=== PATIENT | female | born 1975 | race Caucasian/White ===

== ENCOUNTER 2023-09-23 12:08 | Outpatient (REF) | payer MEDICAID, SELFPAY ==
[2023-09-23 13:48] LABS: Hematocrit 45.4 % (37.0-47.0); Hemoglobin 15.2 g/dl (12.0-16.0); Mean Corpuscular HGB Conc 33.5 g/dl (31.0-35.0); Mean Corpuscular Hemoglobin 31.5 pg (27.0-33.0); Mean Corpuscular Volume 94.2 fL (80.0-98.0); Mean Platelet Volume 9.8 fL (9.4-12.3); Platelet Count 311 X10*3/uL (160-400); Red Blood Count 4.82 X10*6/uL (4.20-5.50); Red Cell Distribution Width 14.4 % (11.0-16.0); White Blood Count 8.1 X10*3/uL (4.8-10.8)
[2023-09-23 14:07] LABS: Estimated Average Glucose 108 mg/dL; Hemoglobin A1c % 5.4 % (<6.0)
[2023-09-23 14:13] LABS: Alanine Aminotransferase 46 U/L (0-31); Albumin Level 4.5 g/dL (3.5-5.0); Alkaline Phosphatase 98 U/L (39-117); Anion Gap 14 (12-20); Aspartate Amino Transferase 31 U/L (5-31); Bilirubin Direct 0.2 mg/dL (0.0-0.5); Bilirubin Total 0.9 mg/dL (0.0-1.0); Blood Urea Nitrogen 12 mg/dL (9-16); Calcium 9.7 mg/dL (8.4-10.2); Carbon Dioxide 28 mmol/L (22-29); Chloride 104 mmol/L (96-108); Cholesterol 249 mg/dL (<200); Creatinine Urine 439.85 mg/dL; Estimated Glomerular Filt Rate > 60; Glucose Random 111 mg/dL (60-115); HDL Cholesterol 72 mg/dL (>40); LDL Cholesterol Calculated 139 mg/dL (<100); Microalbum/Creatinine Ratio Ur 11.3 ug/mg cr (<30); Potassium 3.8 mmol/L (3.3-5.1); Sodium 142 mmol/L (135-145); Total Protein 7.4 g/dL (6.5-8.0); Triglycerides 191 mg/dL (<150)
[2023-09-23 14:31] LABS: Thyroid Stimulating Hormone 4.69 uIU/mL (0.32-4.0); Vitamin D 25-OH Total 53.8 ng/mL (>30)
[2023-09-23 15:09] LABS: CT PCR NOT DETECTED (Not Detect.); NG PCR NOT DETECTED (Not Detect.)
[2023-09-24 07:25] LABS: HBS Num1 79.91 mIU/mL (0-7.99); HBc Num1 0.11 S/CO (0.00-0.79); HBsAGNum1 0.23 S/CO (0.00-0.99); HIV AB/AG Nonreactive (Nonreactive); HIV Num 1 0.12 S/CO (0.00-0.99); Hepatitis B Core Antibody Nonreactive (Nonreactive); Hepatitis B Surface Antigen Negative (Negative); ~HepC Num1 0.04 S/CO (0.00-0.79); ~Hepatitis B Surface Antibody REACTIVE (Nonreactive); ~Hepatitis C Antibody Nonreactive (Nonreactive)
[2023-09-24 07:38] LABS: Hepatitis A Antibody IgG Nonreactive (Nonreactive)
[2023-09-25 06:39] LABS: RPR Rapid Plasma Reagin NON-REACTIVE (NON-REACTIVE)
== END 2023-09-23 12:09 | disposition home or self-care (01) ==
LOC: HO.HHCL 12:08
PROVIDERS: Visit Provider Family Medicine
DX: Z00.00 Encounter for general adult medical examination without abnormal findings (principal)
CPT/HCPCS: 36415; 80048; 80061; 80076; 82043; 82306; 82570; 83036; 84439; 84443; 85027; 86592; 86704; 86706; 86708; 86803; 87340; 87389; 87491; 87591

== ENCOUNTER 2023-11-26 10:06 | Outpatient (REF) | payer MEDICAID, SELFPAY ==
--- NOTE | ~2023-11-26 | MM_ITS ---
EXAMINATION: MM SCREENING DIGITAL BREAST TOMOSYNTHESIS, BILATERAL CLINICAL INFORMATION: Screening. Asymptomatic. COMPARISON: Mammography: Comparison is made with available priors TECHNIQUE: Digital breast mammography with tomosynthesis is performed in both the craniocaudal and mediolateral oblique views along with computer-aided detection (CAD). FINDINGS: There are scattered areas of fibroglandular density (ACR BI-RADS breast composition Category b). Bilateral diffusely scattered skin and benign calcifications. There are no significant masses, abnormal calcifications, or other abnormalities. MM/MM tomosynthesis screening BI IMPRESSION: No mammographic evidence of malignancy. ASSESSMENT: BI-RADS BI-RADS 2 - Benign Findings RECOMMENDATION: Routine annual mammography screening. 1 year F/U This examination should not preclude the clinical evaluation of a suspicious palpable abnormality. This patient's information was entered into a reminder system with a target due date for their next mammogram. Electronically signed by: Berna Corbett DO 12/17/2023 01:30 PM EDT
== END 2023-11-26 10:07 | disposition home or self-care (01) ==
LOC: HO.MAMMO 10:06
PROVIDERS: PCP Family Medicine; Visit Provider Family Medicine
DX: Z12.31 Encounter for screening mammogram for malignant neoplasm of breast (principal)
CPT/HCPCS: 77063; 77067

== ENCOUNTER → 2023-11-26 10:15 | Outpatient (BNV) | payer MEDICAID, SELFPAY | PROVIDERS: PCP Family Medicine; Visit Provider Internal Medicine | DX: Z12.31 Encounter for screening mammogram for malignant neoplasm of breast (principal) | CPT/HCPCS: 77063; 77067 ==

== ENCOUNTER 2023-12-03 07:44 | Outpatient (REF) | payer MEDICAID, SELFPAY ==
--- NOTE | ~2023-12-03 | CT_ITS ---
EXAMINATION CT HEAD WITHOUT CONTRAST CLINICAL INFORMATION: Undiagnosed seizure disorder COMPARISON: None TECHNIQUE: CT of the head was performed without intravenous contrast. Reformatted axial, coronal, and sagittal images were reviewed. This CT examination was performed using dose optimization techniques as appropriate, variously including the following: *Automated exposure control *Adjustment of mA and/or kV according to patient size (this includes techniques or standardized protocols for targeted exams where dose is matched to indication/reason for exam; i.e. extremities or head) *Use of iterative reconstruction technique DLP: 772 mGy-cm FINDINGS: Serpiginous hyperdensity within the right frontoparietal sulci. No extra-axial fluid collection or midline shift is identified. Paulson-white matter differentiation is preserved. The ventricles are within normal limits. Basal cisterns are within normal limits. Paranasal sinuses are clear. Mastoid air cells and middle ear cavities are clear. No acute calvarial fractures. CT/CT head/brain wo IV con IMPRESSION: Serpiginous hyperdensity/calcification of the right frontoparietal cortex. Differential diagnosis includes subarachnoid hemorrhage or remote insult (infarct vs infection). Recommend further evaluation with MRI brain with contrast. These findings were discussed and acknowledged by Dr. Willis on 12/04/2023 at 4:14 PM. Electronically signed by: Cristian Harris DO 12/04/2023 04:16 PM EDT
== END 2023-12-03 07:45 | disposition home or self-care (01) ==
LOC: HO.CT 07:44
PROVIDERS: PCP Family Medicine; Visit Provider Family Medicine
DX: R56.9 Unspecified convulsions (principal)
CPT/HCPCS: 70450

== ENCOUNTER 2023-12-17 11:25 | Outpatient (AMB) | payer MEDICAID, SELFPAY ==
[2023-12-17 11:21] VITALS: BP 124/86; PULSE 81; O2SAT 98; BMI 31.3
--- NOTE | 2023-12-17 11:21 | HO.NEPHOV ---
Vital Signs 12/17/23 11:21 Height 5 ft 6.5 in Weight 197 lb BMI 31.3 BP 124/86 Blood Pressure Location Lt brachial Position Sitting Pulse 81 Pulse Source Pulse Oximeter Pulse Oximetry (%) 98 Oxygen Delivery Method Room Air Intake Visit Reasons: Kidney Disease/ Conf Casino Floor Person Required: No Accompanied by: Self / Same As Patient Allergies epinephrine Allergy (Unknown, Verified 12/17/23 11:27) Flushing tramadol Allergy (Unknown, Verified 12/17/23 11:27) Shortness of Breath Medication List - Last Reconciled 12/17/23 by Emiliana Lazaro, DNP, FAMILY AND CONSUMER SCIENCE PROFESSOR-BC ascorbic acid (vitamin C) ER 500 mg PO DAILY atorvastatin 40 mg PO DAILY cholecalciferol (vitamin D3) 50 mcg PO DAILY cyclobenzaprine 10 mg PO BEDTIME PRN gabapentin 300 mg PO BID gabapentin 600 mg PO BEDTIME nifedipine ER 60 mg PO DAILY nifedipine ER 30 mg PO DAILY sumatriptan succinate 100 mg PO ONCE PRN HPI Comments Details: 48 y/o female with a medical hx of essential HTN, HLD, migraines, PTSD, obesity, chronic migraine, HLD, bladder prolapse (s/p sling for incontinence), hx of lumbar fusion, former smoker. referred by PCP for reported hx of stage 2 kidney disease. reports previously on lisinopril 2 or so years ago, then reduced renal function developed, so lisinopril was weaned off. reports also lost weight at that time so did not need additional blood pressure medication. Renal function then improved. she has since struggled with additional weight gain, was started on nifedipine 60mg daily which was recently increased to 90mg daily due to continued uncontrolled blood pressure. She reports nifedipine is the only blood pressure medication she has tried that has been effective. labs (scanned) microalbumin to creatinine ratio was 11.3 creatinine, serum 0.94 eGFR >60 A1c 5.4 has had high blood pressure since she was young- diagnosed age 18. mom hypertension, and both of her parents, also her brothers, one has passed reports brother from sleep apnea, passed suddenly in his sleep age 30 alcohol use is quite rare former smoker, quit when she was 17, then smoked from age [age]. reports chronic swelling in her legs since January of 2022 she swells when she eats salt so she avoids this, cooks and does not add salt she does note some chronic/mild dyspnea with exertion up stairs, worse when she put on more weight no NSAIDs frequent urination at night- 5x nightly, but can be more or less does try to drink a lot of water and cranberry juice (sugar-free), guesses 64 ounces daily chronic low back pain but no new issues with flank pain no dysuria, hematuria, or other urinary symptoms PFS Medical History (Updated 12/17/23 @ 12:09 by Emiliana Lazaro DNP, FAMILY AND CONSUMER SCIENCE PROFESSOR-BC) History of tobacco use History of COVID-19 Female bladder prolapse Hyperlipemia Essential hypertension Mixed stress and urge urinary incontinence BMI 31.0-31.9,adult Posttraumatic stress disorder Surgical History History of tonsillectomy History of lumbar fusion History of hysterectomy H/O section History of bladder suspension procedure Hx of appendectomy Family History (Updated 12/17/23 @ 11:49 by Emiliana Lazaro DNP, HALLIE-BC) Mother HTN (hypertension) Father Diabetes mellitus Brother No problems noted. Review of Systems Const Denies anorexia, Denies fatigue and Denies fever(s) ENT Denies dizziness Card Denies no additional complaints, Denies chest pain, Denies lightheadedness and Reports dyspnea on exertion Resp Reports no additional complaints and Reports dyspnea on exertion GI Denies diarrhea Denies hematuria, Denies difficulty voiding, Reports nocturia, Denies dysuria, Denies urinary incontinence and Denies urinary urgency Musc Reports tingling Skin/Breast Reports rash (reports rash on lower extremities intermittently) Neuro Denies dizziness and Reports tingling Endo Denies fatigue Physical Exam Vital Signs: Last Vital Signs Pulse 81 12/17/23 11:21 BP 124/86 12/17/23 11:21 Pulse Ox 98 12/17/23 11:21 Oxygen Delivery Method Room Air 12/17/23 11:21 BMI result Body Mass Index 31.3 Results Reviewed Nephrology Results: Hgb 15.2 g/dl (12.0-16.0) 09/23/23 WBC 8.1 X10*3/uL (4.8-10.8) 09/23/23 Plt Count 311 X10*3/uL (160-400) 09/23/23 Sodium 142 mmol/L (135-145) 09/23/23 Potassium 3.8 mmol/L (3.3-5.1) 09/23/23 Chloride 104 mmol/L (96-108) 09/23/23 Carbon Dioxide 28 mmol/L (22-29) 09/23/23 BUN 12 mg/dL (9-16) 09/23/23 Creatinine 0.94 mg/dL (0.5-1.4) 09/23/23 Calcium 9.7 mg/dL (8.4-10.2) 09/23/23 Urine Creatinine 439.85 mg/dL 09/23/23 Assessment & Plan Assessment & Plan (1) Nocturia: Code(s): R35.1 - Nocturia Category: Medical Plan: Chronic, persistent Will get UA to check for infection May have component of CARLA that is contributory, though given pt has lost weight since remote sleep study this is less likely advised minimize fluids before bedtime (2) Hypertension: Code(s): I10 - Essential (primary) hypertension Category: Medical Qualifiers: Hypertension type: primary hypertension Qualified Code(s): I10 - Essential (primary) hypertension Plan: Controlled on current regimen 90mg nifedipine daily, continue with weight loss efforts with goal of lowering nifedipine dose continue regular exercise and healthy diet for weight loss, avoid added salt in diet (3) Bilateral lower extremity edema: Code(s): R60.0 - Localized edema Category: Medical Plan: Chronic, persistent Nifedipine is likely contributing- given pt reports this is the only blood pressure medicine that has worked well for her, we will continue to monitor she will continue nifedipine 90mg daily, with plan to continue with weight loss, which may aid in lowering nifedipine dose and reduce swelling she continues to avoid salt elevate legs, comrpession stockings she will call if swelling worsens Orders: Orders Basic Metabolic Panel 6 Months I10 - Essential (primary) hypertension, N18.30 - Chronic kidney disease, stage 3 unspecified UA w Microscopic 6 Months R35.1 - Nocturia Coding Level of Care Code New Pt Level 3 (21016) Diagnoses Nocturia R35.1 Primary hypertension I10 Hypertension type: primary hypertension Bilateral lower extremity edema R60.0
== END 2023-12-17 11:59 | disposition home or self-care (01) ==
PROVIDERS: PCP Family Medicine; Referring Provider Family Medicine; Visit Provider Internal Medicine Hypertension Specialist
DX: R35.1 Nocturia (principal); I10 Essential (primary) hypertension; R60.0 Localized edema
CPT/HCPCS: 99203

== ENCOUNTER → 2023-12-17 11:25 | Outpatient (BNVA) | payer MEDICAID, SELFPAY | PROVIDERS: PCP Family Medicine; Referring Provider Family Medicine; Visit Provider Internal Medicine Hypertension Specialist | DX: R35.1 Nocturia (principal); R60.0 Localized edema; I10 Essential (primary) hypertension | CPT/HCPCS: 99202 ==

== ENCOUNTER 2023-12-24 10:15 | Outpatient (REF) | payer MEDICAID, SELFPAY ==
--- NOTE | 2023-12-24 10:20 | EMG_ITS ---
Right median and ulnar motor and sensory studies were performed. Right radial, sensory, and median and lateral antecubital brachial sensory studies were performed and needle examination was performed. IMPRESSION: 1. [id number] right median neuropathy across carpal tunnel. 2. Mild chronic right lower cervical radiculopathy. 3. Right Tom Diony anastomosis, normal variant. MD BETTIE Ashraf/ILIA / [id number] MTDD
== END 2023-12-24 10:16 | disposition home or self-care (01) ==
LOC: HO.NEURO 10:15
PROVIDERS: PCP Family Medicine; Visit Provider Family Medicine
DX: M79.601 Pain in right arm (principal)
CPT/HCPCS: 95886; 95910

== ENCOUNTER 2024-01-09 13:11 | Outpatient (REF) | payer MEDICAID, SELFPAY ==
--- NOTE | 2024-01-09 13:14 | EEG_ITS ---
This is a 16-channel EEG with an EKG lead. The patient is reported awake during the tracing. Background EEG rhythm is 10 to 12 hertz 5 to 100 microvolt posteriorly and lower amplitude fast anteriorly. Some lead and muscle artifacts are noted. Rare right temporal sharp theta range discharges were noted. Photic stimulation does not produce any significant abnormality. Hyperventilation is okay. IMPRESSION: Minimally abnormal EEG suggestive of right temporal irritability. If seizure disorder is strongly suspected, I recommend a 48-hour ambulatory EEG for better definition. MD BETTIE Ashraf/ILIA / [id number]
== END 2024-01-09 13:12 | disposition home or self-care (01) ==
LOC: HO.NEURO 13:11
PROVIDERS: PCP Family Medicine; Visit Provider Family Medicine
DX: R56.9 Unspecified convulsions (principal)
CPT/HCPCS: 95816

== ENCOUNTER 2024-01-16 13:00 | Outpatient (REF) | payer MEDICAID, SELFPAY ==
--- NOTE | ~2024-01-16 | MR_ITS ---
EXAMINATION: MR BRAIN WITHOUT AND WITH CONTRAST CLINICAL INFORMATION: Cerebral blood clots. COMPARISON: CT head from 12/03/2023. TECHNIQUE: MRI of the brain was obtained using routine sequences without and following the administration of 9 mL of Gadavist intravenous contrast. FINDINGS: No focal restricted diffusion is demonstrated to suggest acute or subacute cerebral ischemia. No evidence of acute or chronic hemorrhagic products on heme-sensitive imaging. Scattered periventricular and deep white matter T2 FLAIR hyperintensities consistent with mild underlying microangiopathy. The ventricles are normal in morphology and size. No abnormal mass effect. No midline shift. Normal appearance of the pituitary gland. Normal positioning of the cerebellar tonsils. No demonstrated overt MRI abnormalities to correlate with the previously demonstrated extra-axial curvilinear regions of hyperattenuation along the right frontal lobe. Normal arterial and venous vascular flow voids are present. No abnormal contrast enhancement. Normal, homogeneous marrow signal. Mild mucosal thickening of the paranasal sinuses. Mild leftward nasal septal deviation. No signal abnormalities within the mastoids. MR/MR head/brain wo/w con IMPRESSION: 1. No acute intracranial abnormalities. No abnormal intracranial enhancement. 2. Mild underlying microangiopathy. 3. Otherwise, no demonstrated overt MRI abnormalities to correlate with the previously demonstrated extra-axial curvilinear regions of hyperattenuation along the right frontal lobe. Electronically signed by: Anthony aLcy DO 03/04/2024 05:26 AM EDWARD
[2024-01-16] MEDS: gadobutroL 10 ML VIAL IVPUSH (14:09)
== END 2024-01-16 13:01 | disposition home or self-care (01) ==
LOC: HO.MRI 13:00
PROVIDERS: PCP Family Medicine; Visit Provider General Practice
DX: R93.0 Abnormal findings on diagnostic imaging of skull and head, not elsewhere classified (principal)
CPT/HCPCS: 70553; A9585

== ENCOUNTER → 2024-05-05 17:41 | Outpatient (BNV) | payer MEDICAID, SELFPAY | PROVIDERS: PCP Family Medicine; Visit Provider Radiology Diagnostic Radiology | DX: G89.29 Other chronic pain (principal); M79.601 Pain in right arm | CPT/HCPCS: 72141 ==

== ENCOUNTER 2024-05-05 18:05 | Outpatient (REF) | payer MEDICAID, SELFPAY | END 2024-05-05 18:06 | disposition home or self-care (01) | LOC: HO.MRI 18:05 | PROVIDERS: PCP Family Medicine; Visit Provider Family Medicine | DX: M79.601 Pain in right arm (principal); G89.29 Other chronic pain | CPT/HCPCS: 72141 ==

== ENCOUNTER 2024-05-14 14:34 | Outpatient (REF) | payer MEDICAID, SELFPAY ==
[2024-05-14 15:39] LABS: Appearance Urine Clear; Color Urine Yellow; Glucose Urine UA Negative (Negative); Leukocyte Esterase Urine Negative (Negative); Nitrite Urine Negative (Negative); PH 7.5 (5.0-9.0); Urine Blood Negative (Negative); Urine Ketones Negative (Negative); Urine Protein Negative (Neg-Trace)
[2024-05-14 15:45] LABS: Bacteria Urine None Seen (None Seen); Hyaline Casts Urine 0-2 /LPF (0-2); RBC Urine 0-2 /HPF (0-2); Squamous Epithelial Cell Urine 0-2 /HPF (0-2); WBC Urine 0-5 /HPF (0-5)
--- OUTSIDE RECORDS SUMMARY | 2024-05-14 15:45 | XMS_ITS | Patient Health Record ---
Author Organization Rodrigo Do MD Address [address] [place] [id number] Care Team Providers Care Shellfish Processing Laborer Name Role Phone Suman Root Primary Care Provider Unavailab Bia HARRY MD, Elias Unavailable Unavailabl e ALLERGIES Allergen (clinical drug ingredient) Drug/Non Drug Allergy documented on EMR Reaction Allergy Type Onset Date Status ePHEDrine HCl Unknown Drug Allergy Act sara REASON FOR REFERRAL No Information MEDICATIONS Medication SIG (Take, Route, Frequency, Duration) Notes Start Date End Date Status Lisinopril 5 MG 1 tablet Orally Once a day Active NIFEdipine ER Osmotic Release 90 MG 1 tablet Orally Once a day Active NIFEdipine ER Osmotic Release 30 MG 1 tablet Orally Once a day Active Chlorthalidone 25 MG 1/2 tablet in the morning Orally Once a day Active Ultram 50 MG 1 tablet as needed Orally every 6 hrs Active Gabapentin 300 MG 1 capsule Orally Thr ee times a day Active Famotidine 20 MG 1 tablet at bedtime Orally Once a day Active diazePAM 2 MG 1 tablet as needed Orally Twice a day Active SOCIAL HISTORY Tobacco Use: Social History Observation Description Date Details (start date - stop date) Former Smoker NA - NA Sex Assigned At : Social History Observation Description Sex Assigned At Unknown Tobacco Use/Smoking Question Answer Notes Do you smoke? former smoker Section Notes: Tobacco none x5 years, alcoh ol occasional. Daily medical marijuana PROBLEMS Problem Type ICD Code Onset Dates Problem Status W/U Status Risk SNOMED Code Notes Problem Other spondylosis with radiculopathy, lumbosacral region (M47.27) Active confirmed 472044427 Problem Intervertebral disc disorder with radiculopathy of lumbosacral region (M51.17) Active confirmed 27315162 Problem Spinal stenosis of lumbosacral region (M48.07) Active confirmed [id number] PLAN OF TREATMENT No Information Insurance Providers Payer Name Payer Address Payer Phone Subscriber Number Group Number Insured Name Patient Relationship to Insured Coverage Start Date Coverage End Date Ravi Velarde W/C c/o [employer] [address] [id number] Rose Mao Self - patient is the insured MEDICAL (GENERAL) HISTORY Medical History History ICD Code Chronic anxiety & depression hypertension GERD prediabetic Surgical History Surgery Date(Month/Year) Tonsillectomy childhood Appendectomy 1987 Emergency 1995 Venous Ablations 2011 & 2012
--- OUTSIDE RECORDS SUMMARY | 2024-05-14 15:45 | XMS_ITS | Encounter Summary ---
Author Organization [employer] Address [address] [place] [address] Care Team Providers Care Watch Repairer Apprentice Name Role Phone Stephany Casanova Primary Care Provider [phone] Reason for Visit * Reason Comments Med Refill Encounter Details Date Type Department Care Team ([facility] st Contact Info) Description 04/02/2024 Refill [facility] [address] [place], [place] [phone] Gauri Lee MD [address] [place], [place] [phone] Social History Tobacco Use Types Packs/Day Years Used Date Smoking Tobacco: Former Cigarettes Smokeless Tobacco: Never Alcohol Use Standard Drinks/Week Comments Not Currently 0 (1 standard drink = 0.6 oz pur e alcohol) Depression Answer Date Recorded Patient Health Questionnaire-9 Score 15 03/10/2024 Patient Health Questionnaire-9 Score 15 03/10/2024 Last PHQ-9: Questionnaire Data Not on file 1 05/11/2023 Housing Stability Answer Date Recorded What is your housing situation today? I have karoline alexandra 09/23/[address] you li ve. Do you have problems with any of the following? None of the above 09/23/2023 Food Insecurity Answer Date Recorded Within the past 12 months, y ou worried that your food would run out before you got money to buy more: Never True 09/23/2023 Within the past 12 months,th e food you bought just didn't last and you didn't have enough money to get more: Never True 03/2023 Transportation Answer Date Recorded In the past 12 months, has l ack of transportation kept you from medical appts, meetings, work or from getting things needed for daily living? No 09/23/2023 Utilities Answer Date Recorded In the past 12 months, has t he electric, gas, oil or water company threatened to shut off services in your home? No 09/23/2023 Depression Answer Date Recorded Patient Health Questionnaire-2 Score 2 03/10/2024 Internet Access Answer Date Recorded Internet Access Q1 Yes 11/25/2023 Internet Access Q2 Not on file 11/25/2023 Comments Unknown Sex and Gender Information Value Date Recorded Sex Assigned at Female 08/22/2023 11:56 AM EDT Legal Sex Female 11:55 AM EDT Gender Identity Female 08/22/2023 11:56 AM EDT Sexual Orientation Choose not to disclose 2023 11:56 AM EDT documented as of this encounter Plan of Treatment Not on file documented as of this encounter Visit Diagnoses Not on filedocumented in this encounter Additional Health Concerns Assessment Noted Time PHQ-9 Depression Total Score: 15 024 1:37 PM EST documented as of this encounter Care Teams Watch Repairer Apprentice Relationship Specialty Start Date End Date Stephany Casanova DO [address] [place] [id number] PCP - General Family Medicine 09/23/23 documented as of this encounter
--- OUTSIDE RECORDS SUMMARY | 2024-05-14 15:45 | XMS_ITS | Clinical Summary ---
Author Organization [facility] Address [address] [place] [address] Care Team Providers Care Dog License Officer Supervisor Name Role Phone Stephany Casanova DO Primary Care Provider Allergies Active Allergy Reactions Criticality Noted Date Comments Epinephrine 01/03/2016 Tingling, flushing Other Reaction(s): tingling up arms and jaw Tramadol Shortness of breath High 08/22/2023 Medications * This document contains information received from the source organization and may not represent a complete record from that organization. atorvastatin (Lipitor) 40 MG tablet Take 40 mg by mouth Once per day. Active cholecalciferol (D2000 Ultra Strength) 50 MCG (2000 UT) capsule Take 2,000 Units by mouth Once per day. Active cyclobenzaprine (Flexeril) 10 MG tablet Take 10 mg by mouth if needed in the morning, at noon, and at bedtime. Active diazePAM (Valium) 2 MG tablet Take 2 mg by mouth if needed at bedtime. Active gabapentin (Neurontin) 300 MG capsule Take 300 mg by mouth 2 times daily. 08/22/2023 Active Multiple Vitamins-Minera ls (Oncovite) tablet Take 1 tablet by mouth Once per day. Active Vitamin E 670 MG (1000 UT) capsule Take 1,000 Units by mouth Once per day. Active Blood Pressure kit 1 each 1 (one) time per week. 1 kit 09/23/2023 Active NIFEdipine XL (Procardia XL) 30 MG 24 hr tablet Take 1 tablet (30 mg) by mouth Once per day. Do not crush, chew, or split. 90 tablet 1 09/23/2023 09/23/19 25 Active SUMAtriptan (Imitrex) 100 MG tablet Take 1 tablet (100 mg) by mouth 1 (one) time if needed for migraine. 9 tablet 3 09/23/2023 Active NIFEdipine CC (Adalat CC) 30 MG 24 hr tablet TAKE 1 TABLET BY MOUTH ONCE DAILY. DO NOT BREAK, CRUSH, DISSOLVE OR CHEW 90 tablet 03/26/2024 Active NIFEdipine XL (Procardia XL) 60 MG 24 hr tablet TAKE 1 TABLET BY MOUTH EVERY DAY 90 tablet 04/03/2024 Active Active Problems Problem Noted Date Diagnosed Date Microalbuminuria 04/20/2024 Chronic pain of right upper extremity 04/20/2024 Seizure 04/20/2024 Right carpal tunnel syndrome 04/20/2024 Moderate episode of recurrent major depressive d isorder 03/10/2024 SHOSHANA (generalized anxiety disorder) 03/10/2024 History of COVID-19 11/08/2023 History of tobacco use 11/08/2023 Female bladder prolapse 09/23/2023 Posttraumatic stress disorder 08/22/2023 Assessment & Plan (03/10/2024 1:55 PM EST): depressed mood, crying spells , irritable mood, loss of interests/pleasure , isolating, change in appetite or weight overeating and unintentional weight gain, changes in sleep difficulty falling asleep and difficulty staying asleep , fatigue/loss of energy, worthlessness, difficulty concentrating, excessive worry/anxiety, difficulty controlling worry, anxiety/worry associated to restlessness and/or feeling keyed-up/On edge , easily fatigued , difficulty concentrating and/or mind going blank , irritability, muscle tension , and sleep disturbance difficulty falling asleep and difficulty staying asleep , and Fear , and Flashbacks, Intrusive trauma memories and thoughts, Nightmares/night terrors, Hypervigilance, Avoidance of trauma reminders/triggers, Increased startle response, Fear and distrust in relationships, Withdrawn, and Fear of social judgement PLAN: New/Additional Services needed Off-site services for Behavioral Health Integration Plan External OP therapy referral Patient Self Plan Patient to utilize skills provided in intervention , Patient to reach out to [facility] team as needed, and Patient to engage in OP therapy BMI 31.0-31.9,adult 08/22/2023 Mixed stress and urge urinary incontinence 08/21 Chronic migraine 08/22/2023 Hyperlipidemia 08/22/2023 Essential hypertension 01/03/2016 Encounters * This document contains information received from the source organization and may not represent a complete record from that organization. Date Type Department Care Team Description 05/14/2024 Orders Only GENERIC EXTERNAL DATA DEPARTMENT Provider, Generic External Data 05/08/2024 Telephone [facility] [address] [place] [address] Stephany Casanova DO Results 04/03/2024 Telephone [facility] [address] [place] [address] Stephany Casanova DO Med Refill 04/03/2024 Refill [facility] [address] [facility] [address] Stephany Casanova DO 04/02/2024 Refill [facility] [address] [place] [address] Gauri Lee MD 03/31/2024 Telephone [facility] [address] [place] [phone] Stephany Casanova DO Referral 03/25/2024 Refill [facility] [address] [place] [address] Stephany Casanova DO 03/10/2024 10:45 AM EST Office Visit [facility] [place] [address] Stephany Casanova DO Essential hypertension (Primary Dx); Other hyperlipidemia; Posttraumatic stress disorder; Chronic migraine; Microalbuminuria; Chronic pain of right upper extremity; Right carpal tunnel syndrome; Seizure (CMS/HCC); Labial cyst; Healthcare maintenance; Encounter for immunization 03/10/2024 Travel from Last 3 Months Immunizations Name Administration Dates Next Due Influenza injectable quadriv alent IIV4 with preservative 03/26/2019 Influenza injectable quadriv alent preservative free 02/14/2020 Influenza, IIV3, injectable 01/13/2021, 0,03/26/2019 Influenza, seasonal, injecta ble, preservative free 03/10/2024 Tdap 03/10/2024 Social History Tobacco Use Types Packs/Day Years Used Date Smoking Tobacco: Former Cigarettes Smokeless Tobacco: Never Tobacco Cessation:Counseling Given: No Alcohol Use Standard Drinks/Week Comments Not Currently [...] not to disclose 2023 11:56 AM EDT Last Filed Vital Signs Vital Sign Reading Time Taken Comments Blood Pressure 126/68 03/10/2024 10:39 AM EST Pulse 86 03/10/2024 10:39 AM EST Temperature 36.3 ??C (97.4 ??F) 03/10/2024 10:[address] Respiratory Rate 17 03/10/2024 10:39 AM EST Oxygen Saturation 99% 12/12/2023 1:23 PM EDT Inhaled Oxygen Concentration - - Weight 92.1 kg (203 lb) 03/10/2024 10:39 AM EST Height 167.6 cm (5' 6 ) 03/10/2024 10:39 AM EST Body Mass Index 32.77 03/10/2024 10:39 AM EST Plan of Treatment Health Maintenance Due Date Last Done Comments CT Colonography 1973 Colonoscopy 1973 Colorectal Cancer Screening 1973 FIT DNA/Cologuard 1973 FIT 1973 FOBT 1973 Sigmoidoscopy 1973 Family Planning (PISQ) 1988 Hepatitis B Vaccines (1 of 3 - 19+ 3-dose series) 1992 Pap Smear 1994 Cervical Cancer Screening 2003 HPV/Cotest 2003 Pneumococcal Vaccine: 50+ Years (1 of 1 - PCV) 2023 Zoster Vaccines (1 of 2) 2023 COVID-19 Vaccine (2 - season) 2023 12/22/2021 Depression Monitoring (PHQ-9) 09/08/2024 03/10/2024, 03/10/2024 SDOH Screening 09/22/2024 09/23/2023 Tobacco Screening 11/07/2024 11/08/2023 Alcohol/Substance Use Screening 03/10/2025 03/10/2024 Depression Screening 03/10/2025 03/10/2024, 03/10/20 24 Mammogram 11/25/2025 11/26/2023 Lipid Panel 09/22/2028 09/23/2023 DTaP/Tdap/Td Vaccines (2 - Td or Tdap) 03/10/2034 03/10/2024 RSV Patients and Patients Aged 60 years or older (1 - 1-dose 75+ series) 2048 HIV Screening Completed 09/23/2023 Hepatitis C Screening Completed 09/23/2023 Influenza Vaccine Completed 03/10/2024, , 02/14/2020, Additional history exists HIB Vaccines Aged Out No longer eligi ble based on patient's age to complete this topic HPV Vaccines Aged Out No longer eligi ble based on patient's age to complete this topic Hepatitis A Vaccines Aged Out No long er eligible based on patient's age to complete this topic IPV Vaccines Aged Out No longer eligi ble based on patient's age to complete this topic Meningococcal Vaccine Aged Out No fabiola ephraim eligible based on patient's age to complete this topic RSV under 20 months Aged Out No longe r eligible based on patient's age to complete this topic Rotavirus Vaccines Aged Out No longer eligible based on patient's age to complete this topic Procedures Procedure Name Priority Date/Time Associated Diagnosis Comments URINALYSIS, COMPLETE Routine 05/14/2024 2:41 PM EST MR CERVICAL SPINE WO CONTRAST Routine 05/05/2024 6:13 PM EST Chronic pain of right upper extremity BI MAMMOGRAM SCREENING TOMOSYNTHESIS BILATERAL Routine 11/26/2023 10:15 AM EDT Breast cancer screening by mammogram HEPATITIS C AB W/REFL TO HCV RNA, QN, PCR Routine 09/23/2023 12:12 PM EDT Routine history and physical examination of adult HIV 1/2 ANTIGEN/ANTIBODY, FOURTH GENERATION W/RFL Routine 09/23/2023 12:12 PM EDT Routine history and physical examination of adult LIPID PANEL, STANDARD Routine 09/23/2023 12:12 PM EDT Routine history and physical examination of adult from Last 3 Months or Most Recently Relevant to Health Maintenance Results * MR Cervical Spine w/o Contrast (05/05/2024 6:13 PM EST) Anatomical Region Laterality Modality Spine, C-spine Magnetic Resonan ce 05/05/2024 6:13 PM EST Narrative 05/06/2024 7:23 AM EST ? [facility] ?[address] ?[place] [address] ? Magnetic Resonance Report ? Signed ? Patient: Mayco,Rose ?MR#: [id number] ?? [id number] ? : 1975 ?Acct:[id number] ? Age/Sex: 49 / F ?ADM Date: 05/05/ ? Loc: HO.MRI ? Attending Dr: Stephany Casanova DO ? Ordering Physician: Stephany Casanova DO ?? Date of Service: 05/05/24 ?? Procedure(s): MR cervical spine wo con ?? Accession Number(s): [id number] ? cc: Stephany Casanova DO ? EXAMINATION: ?? MR CERVICAL SPINE WITHOUT CONTRAST ? CLINICAL INFORMATION: ?? Cervical radiculopathy. 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 weakness and pain. ? COMPARISON: ?? None available. ? TECHNIQUE: ?? MRI of the cervical spine was obtained using routine sequences without ?? contrast. ? FINDINGS: ?? Craniocervical junction is intact. ?? Modic type I endplate changes with bone marrow STIR signal at C5-C6 ?? vertebral bodies. ?? Marginal osteophyte formation and disc desiccation at C5-6. ?? Grade 1 anterolisthesis C3-4 and C7-T1. ?? Grade 1 retrolisthesis C5-6. ? C2-3: ?? Central disc osteophyte complex formation. No cord compression. No cord ?? signal abnormality. No neuroforamina stenosis. ? C3-4: ?? Grade 1 anterolisthesis. No cord compression. No cord signal ?? abnormality. Right facet joint hypertrophy. No neuroforamina stenosis. ? C4-5: ?? No disc herniation. No cord compression. No cord signal abnormality. No ?? neuroforamina stenosis. ? C5-6: ?? Broad-based disc osteophyte complex formation resulting in ventral CSF ?? effacement of the thecal sac and abutting the cord and cord flattening. ?? No cord signal abnormality. Facet joint hypertrophy. Right ?? neuroforamina stenosis. ? C6-7: ?? Broad-based disc osteophyte complex formation. Ligamentum flavum ?? hypertrophy resulting in flattening of the cord with questionable ?? hyperintense T2 STIR cord signal left midline. There is CSF effacement ?? of the thecal sac. Left neuroforamina narrowing. ? C7-T1: ?? No disc herniation. No neuroforamina stenosis. Cord signal is normal ?? Bilateral perineural cysts more conspicuous in the right side. ? No prevertebral compartment hematoma, mass or fluid collection. Flow ?? void signal within the mean vessels is normal. ?? Codominant vertebral arteries. ?? Nonspecific prominent cervical lymph nodes. ? MR/MR cervical spine wo con ?? IMPRESSION: ?? Multilevel cervical spondylosis more conspicuous at C5-6 and C6-7 ?? levels resulting in grade 1 retrolisthesis C5-6, cord compression at ?? C6-7 and to a lesser extent C5-6 with questionable cord edema and or ?? myelopathy at C6 level. ? Right neuroforamina stenosis at C5-6 on a degenerative basis, likely ?? compressing the C6 exiting nerve root. ? Cervical instability C5-C6 and C3-4 cannot be excluded.. ? Electronically signed by: ??Tello Saldaña MD ??05/06/2024 07:19 AM ?? EST ? Dictated By: ?Tello Colindres MD ? Signed By: ?<Electronically signed by Tello Anand MD in OV> ? 05/06/24 0719 ? DD/ 1813 ? TD/TT: 05/05/24 1835 ? Sample Room Supervisor: ? Procedure Note Ju Toure - 05/06/2024 [place] [address] Magnetic Resonance Report Signed Patient: Fatmata Mao#: [id number] : 1975Acct:[id number] Age/Sex: 49 / FADM Date: 05/05/24 Loc: HO.MRI Attending Dr: Stephany Casanova DO Ordering Physician: Stephany Casanova DO Date of Service: 05/05/24 Procedure(s): MR cervical spine wo con Accession Number(s): [id number] cc: Stephany Casanova DO EXAMINATION: MR CERVICAL SPINE WITHOUT CONTRAST CLINICAL INFORMATION: Cervical radiculopathy. 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 COMPARISON: None available. TECHNIQUE: MRI of the cervical spine was obtained using routine sequences without contrast. FINDINGS: Craniocervical junction is intact. Modic type I endplate changes with bone marrow STIR signal at C5-C6 vertebral bodies. Marginal osteophyte formation and disc desiccation at C5-6. Grade 1 anterolisthesis C3-4 and C7-T1. Grade 1 retrolisthesis C5-6. C2-3: Central disc osteophyte complex formation. No cord compression. No cord signal abnormality. No neuroforamina stenosis. C3-4: Grade 1 anterolisthesis. No cord compression. No cord signal abnormality. Right facet joint hypertrophy. No neuroforamina stenosis. C4-5: No disc herniation. No cord compression. No cord signal abnormality. No neuroforamina stenosis. C5-6: Broad-based disc osteophyte complex formation resulting in ventral CSF effacement of the thecal sac and abutting the cord and cord flattening. No cord signal abnormality. Facet joint hypertrophy. Right neuroforamina stenosis. C6-7: Broad-based disc osteophyte complex formation. Ligamentum flavum hypertrophy resulting in flattening of the cord with questionable hyperintense T2 STIR cord signal left midline. There is CSF effacement of the thecal sac. Left neuroforamina narrowing. C7-T1: No disc herniation. No neuroforamina stenosis. Cord signal is normal Bilateral perineural cysts more conspicuous in the right side. No prevertebral compartment hematoma, mass or fluid collection. Flow void signal within the mean vessels is normal. Codominant vertebral arteries. Nonspecific prominent cervical lymph nodes. MR/MR cervical spine wo con IMPRESSION: Multilevel cervical spondylosis more conspicuous at C5-6 and C6-7 levels resulting in grade 1 retrolisthesis C5-6, cord compression at C6-7 and to a lesser extent C5-6 with questionable cord edema and or myelopathy at C6 level. Right neuroforamina stenosis at C5-6 on a degenerative basis, likely compressing the C6 exiting nerve root. Cervical instability C5-C6 and C3-4 cannot be excluded.. Electronically signed by: Tello Saldaña MD 05/06/2024 07:19 AM EST Dictated By: Tello Colindres MD Signed By: <Electronically signed by Tello Anand MDin OV> 05/06/24 0719 DD/ 12 TD/TT: 05/05/24 1835 Sample Room Supervisor: Stephany Casanova DO IMG MRI PROCEDURES Final Res ult * BI Mammogram Screening Tomosynthesis Bilateral (11/26/2023 10:15 AM EDT) Anatomical Region Laterality Modality Breast Bilateral Mammography 11/26/2023 10:1 5 AM EDT Narrative 12/17/2023 1:33 PM EDT ? [facility] ? [address] ?[place] [address] ? Mammography Report ? Signed ? Patient: Rose Mao ?MR#: [id number] ?? [id number] ? : 1975 ?Acct:[id number] ? Age/Sex: 48 / F ?ADM Date: 11/26/23 ? Loc: HO.MAMMO ? Attending Dr: Stephany Casanova DO ? Ordering Physician: Stephany Casanova DO ?Results: 2B ?? enign Findings ? Date of Service: 11/26/23 ?Follow Up: 1 Year From Orig ?? inal Mammogram ? Procedure(s): MM tomosynthesis screening BI ?? Accession Number(s): [id number] ? cc: Stephany Casanova DO ? EXAMINATION: ?? MM SCREENING DIGITAL BREAST TOMOSYNTHESIS, BILATERAL ? CLINICAL INFORMATION: ? Screening. Asymptomatic. ? COMPARISON: ?? Mammography: Comparison is made with available priors ? TECHNIQUE: ?? Digital breast mammography with tomosynthesis is performed in both the ?? craniocaudal and mediolateral oblique views along with computer-aided ?? detection (CAD). ? FINDINGS: ?? There are scattered areas of fibroglandular density (ACR BI-RADS breast ?? composition Category b). ?? Bilateral diffusely scattered skin and benign calcifications. ?? There are no significant masses, abnormal calcifications, or other ?? abnormalities. ? MM/MM tomosynthesis screening BI ?? IMPRESSION: ?? No mammographic evidence of malignancy. ? ASSESSMENT: ? BI-RADS BI-RADS 2 - Benign Findings ? RECOMMENDATION: ?? Routine annual mammography screening. ? 1 year F/U ? This examination should not preclude the clinical evaluation of a ?? suspicious palpable abnormality. ? This patient's information was entered into a reminder system with a ?? target due date for their next mammogram. ? Electronically signed by: ??Berna Crobett DO ??12/17/2023 01:30 PM EDT ? Dictated By: ?Berna Corbett DO ? Signed By: ?<Electronically signed by Berna Corbett, DO in OV> ? 12/17/23 1330 ? DD/ 1015 ? TD/TT: 11/26/23 1040 ? Sample Room Supervisor: ? Procedure Note Ju Toure - 12/17/2023 [facility] [address] [place] [address] Mammography Report Signed Patient: Rose MaoMR#: [id number] : 1975Acct:[id number] Age/Sex: 48 / FADM Date: 11/26/23 Loc: HO.MAMMO Attending Dr: Stephany Casanova DO Ordering Physician: Stephany Casanovaults: 2B enign Findings Date of Service: 11/26/23Follow Up: 1 Year From Orig inal Mammogram Procedure(s): MM tomosynthesis screening BI Accession Number(s): [id number] cc: Stephany Casanova DO EXAMINATION: MM SCREENING DIGITAL BREAST TOMOSYNTHESIS, BILATERAL CLINICAL INFORMATION: Screening. Asymptomatic. COMPARISON: Mammography: Comparison is made with available priors TECHNIQUE: Digital breast mammography with tomosynthesis is performed in both the craniocaudal and mediolateral oblique views along with computer-aided detection (CAD). FINDINGS: There are scattered areas of fibroglandular density (ACR BI-RADS breast composition Category b). Bilateral diffusely scattered skin and benign calcifications. There are no significant masses, abnormal calcifications, or other abnormalities. MM/MM tomosynthesis screening BI IMPRESSION: No mammographic evidence of malignancy. ASSESSMENT: BI-RADS BI-RADS 2 - Benign Findings RECOMMENDATION: Routine annual mammography screening. 1 year F/U This examination should not preclude the clinical evaluation of a suspicious palpable abnormality. This patient's information was entered into a reminder system with a target due date for their next mammogram. Electronically signed by: Berna Corbett DO 12/17/2023 01:30 PM EDT RP Dictated By: Berna Corbett DO Signed By: <Electronically signed by Berna Corbett DO in OV> 12/17/23 1330 DD/ 1015 TD/TT: 11/26/23 1040 Sample Room Supervisor: Stephany Casanova DO IMG BI PROCEDURES Final Resu lt * Hepatitis C Antibody with Reflex to HCV, RNA, Quantitative, Real-Time PCR (09/23/2023 12:12 PM EDT) Hepatitis C Antibody Nonreactive Nonreactive [facility] Comment:Antibodies to HCV no t detected; does not exclude early acuteHCV infection. Blood Venous blood specimen / Unknown 09/23/2023 12:12 PM EDT 09/23/2023 1:13 PM EDT Stephany Casanova DO LAB BLOOD ORDERABLES Final R esult [facility] [address] [place] [phone] * HIV-1/2 Antigen and Antibodies, Fourth Generation, with Reflexes (09/23/2023 12:12 PM EDT) HIV AB/AG Nonreactive Nonreactive [facility] Comment:HIV-1 p24 Ag and/or HIV-1/HIV-2 Ab not detected.A test result that is nonreactive does not exclude thepossibility of exposure to or infection with HIV-1 and/orHIV-2. Nonreactive results in this assay for individualswith prior exposure to HIV-1 and/or HIV-2 may be due toantigen and antibody levels that are below the limit ofdetection of this assay.The MT DIGITAL MEDIA HIV Ag/Ab Combo assay result andsupplemental assay results should be interpreted inconjunction with the patient's clinical presentation,history and other laboratory results. If the results areinconsistent with clinical evidence, additional testing issuggested to confirm the result. Blood Venous blood specimen / Unknown 09/23/2023 12:12 PM EDT 09/23/2023 1:13 PM EDT us Stephany Casanova DO LAB BLOOD ORDERABLES Final R esult [facility] [address] [place] [phone] * (ABNORMAL) Lipid Panel, Standard (09/23/2023 12:12 PM EDT) Triglycerides 191(H) <150 mg/dL [facility] Comment:Desirable Triglyceri de: less than 150 mg/dLBorderline High Triglyceride 150-199 mg/dLHigh Triglyceride: 200-499 mg/dLVery High Triglyceride: greater than or equal to 5OO mg/dL Cholesterol 249(H) <200 mg/dL [facility] Comment:Desirable Cholestero l: less than 200 mg/dLBorderline High Cholesterol: 200-239 mg/dLHigh Cholesterol: greater than 239 mg/dL LDL Cholesterol Calculated 139(H) <100 mg/dL [facility] Comment:Desirable LDL: less than 100 mg/dLNear Optimal/Above Optimal LDL: 110- 129 mg/dLBorderline High LDL: 130-159 mg/dLHigh LDL: 160-189 mg/dLVery High LDL: greater than or equal to 190 mg/dL HDL Cholesterol 72 >40 mg/dL [facility] Comment:Desirable HDL: great er than 40 mg/dL Note: This HDL assay may give artificially low results in patients with liver disease. Blood Venous blood specimen / Unknown 09/23/2023 12:12 PM EDT 09/23/2023 1:16 PM EDT Stephany Casanova DO LAB BLOOD ORDERABLES Final R esult [facility] [address] [place] [address] [phone] from Last 3 Months or Most Recently Relevant to Health Maintenance Insurance [facility] C3 Care Teams Dog License Officer Supervisor Relationship Specialty Start Date End Date Stephany Casanova DO [address] [place] [phone] PCP - General Family Medicine 09/23/23
--- OUTSIDE RECORDS SUMMARY | 2024-05-14 15:45 | XMS_ITS | Encounter Summary ---
Author Organization [employer] Address [address] [place] [address] Care Team Providers Care Sack Repairer Name Role Phone Kathy Casanova DO Primary Care Provider [phone] Reason for Referral * Consultation (Routine) - Closed Specialty Diagnoses / Procedures Referred By Heidy atwood Referred To Contact Occupational Therapy Diagnoses Right carpal tunnel syndrome Kathy Casanova DO [address] [place] [address] Phone: tel: fax: [facility] [address] [place] [address] Phone: tel: fax: Referral ID Status Reason Start Date Expiration Date V isits Requested Visits Authorized [id number] Closed Specialty Services Required 04/21/2024 04/21/2025 20 20 * Imaging (Routine) - Closed Specialty Diagnoses / Procedures Referred By Heidy atwood Referred To Contact Radiology Diagnoses Chronic pain of right upper extremity Procedures MR Cervical Spine w/o Contrast Kathy Casanova DO [address] [place] [address] Phone: tel: fax: [address] Phone: tel: fax: Referral ID Status Reason Start Date Expiration Date Visits Re quested Visits Authorized [id number] Closed 04/20/2024 04/20/2025 1 1 * Consultation (Urgent) - Authorized Specialty Diagnoses / Procedures Referred By Contac t Referred To Contact Neurology Diagnoses Seizure (CMS/HCC) Kathy Casanova DO [address] [place] [address] Phone: tel: fax: [facility] Referral ID Status Reason Start Date Expiration Date Visits Requested Visits Authorized [id number] Authorized Specialty Services Required 04/20/2024 04/20/2025 6 6 * Consultation (Routine) - Closed Specialty Diagnoses / Procedures Referred By Heidy t Referred To Contact Physical Therapy Diagnoses Chronic pain of right upper extremity Kathy Casanova DO [address] [place] [address] Phone: tel: fax: [facility] [address] [place] [address] Phone: tel: fax: Referral ID Status Reason Start Date Expiration Date V isits Requested Visits Authorized [id number] Closed Specialty Services Required 04/20/2024 04/20/2025 20 20 * Consultation (Routine) - Authorized Specialty Diagnoses / Procedures Referred By Heidy t Referred To Contact Obstetrics and Gynecology Diagnoses Labial cyst Kathy Casanova DO [address] [place] [address] Phone: tel: fax: [facility] [address] (Main Hospital Entrance) [place], [place] Phone: tel: fax: Referral ID Status Reason Start Date Expiration Date Visits Requested Visits Authorized [id number] Authorized Specialty Services Required 04/20/2024 04/20/2025 9 9 Encounter Details Date Type Department Care Team (Late st Contact Info) Description 03/10/2024 10:45 AM EST Office Visit [facility] [address] [facility] [place] [address] Kathy Casanova DO [address] [facility] [place] [address] Essential hypertension (Primary Dx); Other hyperlipidemia; Posttraumatic stress disorder; Chronic migraine; Microalbuminuria; Chronic pain of right upper extremity; Right carpal tunnel syndrome; Seizure (CMS/HCC); Labial cyst; Healthcare maintenance; Encounter for immunization Social History Tobacco Use Types Packs/Day Years [...] AM EDT documented as of this encounter Last Filed Vital Signs Vital Sign Reading Time Taken Comments Blood Pressure 126/68 03/10/2024 10:39 AM EST Pulse 86 03/10/2024 10:39 AM EST Temperature 36.3 ??C (97.4 ??F) 03/10/2024 10:[address] Respiratory Rate 17 03/10/2024 10:39 AM EST Oxygen Saturation - - Inhaled Oxygen Concentration - - Weight 92.1 kg (203 lb) 03/10/2024 10:39 AM EST Height 167.6 cm (5' 6 ) 03/10/2024 10:39 AM EST Body Mass Index 32.77 03/10/2024 10:39 AM EST documented in this encounter Progress Notes * Kathy Casanova, DO - 03/10/2024 10:45 AM EST SUBJECTIVE: Rose Mao is a 48 y.o. year old female who presents for follow up. HPI She says that she checks her BP sometimes. Her diastolic is usually in the 80s at home. She knows that her weight is going up. She is drinking a lot more coffee with creamer. She says that work is going good. She never connected with a therapist. She had an eye exam and was advised no need for glasses. She was told to f/u in a year. She says that she saw renal and everything was good. PT was on hold and called the day before her appt and told her that they that they don't take her insurance and she needs a new referral. She thinks that the nerve pain is in the muscle. She received meds for colonoscopy but never received an appt for the procedure. She thinks she has labial cysts. She says that they have been aggravating x one year. She says thatthey are not bothersome all the time. She tried to squeeze but nothing comes out. She says that they removed her uterus to make more room for their hands during her bladder lift surgery. She says that they also straightened out the rectum and removed her L ovary. She had her last pap prior to the surgery at [facility]. Review of Systems Constitutional: Negative for chills and fever. Respiratory: Negative for shortness of breath. Cardiovascular: Negative for chest pain and leg swelling. Gastrointestinal: Negative for abdominal pain, diarrhea and vomiting. Neurological: Negative for headaches. Patient Active Problem List Diagnosis Posttraumatic stress disorder BMI 31.0-31.9,adult Mixed stress and urge urinary incontinence Chronic migraine Essential hypertension Hyperlipidemia Female bladder prolapse History of COVID-19 History of tobacco use Moderate episode of recurrent major depressive disorder (CMS/HCC) SHOSHANA (generalized anxiety disorder) Microalbuminuria Chronic pain of right upper extremity Seizure (CMS/HCC) Allergies Allergen Reactions Tramadol Shortness of breath Epinephrine Tingling, flushing Other Reaction(s): tingling up arms and jaw OBJECTIVE Vitals: 03/10/24 1039 BP: 126/68 BP Location: Left arm Patient Position: Sitting BP Cuff Size: Adult Pulse: 86 Resp: 17 Temp: 97.4 ??F (36.3 ??C) TempSrc: Oral Weight: 203 lb (92.1 kg) Height: 5' 6 (1.676 m) Physical Exam Constitutional: General: She is not in acute distress. Appearance: Normal appearance. Cardiovascular: Rate and Rhythm: Normal rate and regular rhythm. Heart sounds: Normal heart sounds. No murmur heard. Pulmonary: Effort: Pulmonary effort is normal. Breath sounds: Normal breath sounds. No wheezing or rhonchi. Neurological: General: No focal deficit present. Mental Status: She is alert. Psychiatric: Mood and Affect: Mood normal. The 10-year ASCVD risk score ([place] DK, et al., 2019) is: 1.2% Values used to calculate the score: Age: 48 years Sex: Female Is Non- : No Diabetic: No Tobacco smoker: No Systolic Blood Pressure: 126 mmHg Is BP treated: No HDL Cholesterol: 72 mg/dL Total Cholesterol: 249 mg/dL ASSESSMENT/PLAN Diagnoses and all orders for this visit: Essential hypertension BP controlled -cont nifedipine daily -cont intermittent home BP monitoring -Cr, GFR nml with mild microalbuminuria September 2023 -refer for EKG next visit* -awaiting copy of [facility] [employer] eval Other hyperlipidemia LDL at goal September 2023 -cont lipitor nightly Posttraumatic stress disorder With depression and anxiety -she denies any SI/HI -she has the number for crisis -she will meet with clinician today for referral to new therapist Chronic migraine -cont imitrex prn acute migraine Microalbuminuria -Cr, GFR nml with mild microalbuminuria September 2023 -optimal BP control -avoid NSAIDs -f/u with renal as scheduled, will get copy of eval Chronic pain of right upper extremity Extending from neck/shoulder and radiating down R arm -re-referred for shoulder/C-spine xrays -EMG/NCS with mild chronic right lower cervical radiculopathy Dec 2023 -referred for MRI C-spine -cont gabapentin BID -cont flexeril prn -re-referred to PT -advised contact C if sx change or worsen, she agrees with plans Right carpal tunnel syndrome -EMG/NCS with [id number] right median neuropathy across carpal tunnel Dec 2023 -advised wrist splint nightly -referred to OT for eval -consider eval with ortho if no improvement Seizure (CMS/HCC) -CT head with serpiginous hyperdensity/calcification of the right frontoparietal cortex Nov 2023 -MRI brain with no acute intracranial abnormalities, no abnormal intracranial enhancement and mild underlying microangiopathy Dec 2023 -EEG with minimally abnormal EEG suggestive of right temporal irritability Dec 2023 -cont to avoid triggers -referred to neurology for eval Labial cyst Persistent sx x one year -referred to [facility] for eval Healthcare maintenance -flu vaccine today -she declines COVID vaccine -Tdap today -encouraged shingrix vaccine -Hep B immune -mammo BIRADS 2 Nov 2023 -advised contact GI to schedule colonoscopy -s/p hysterectomy, will attempt to get operative records and pap results from [facility] -A1c 5.26 September 2023 -STI/HIV screen negative September 2023 -review family hx next visit* Encounter for immunization - FLU VACCINE TRIVALENT (Fluarix) 6 mo + - TDAP VACCINE 7 yrs + F/U with me in 4 mos or sooner prn Current Outpatient Medications: atorvastatin (Lipitor) 40 MG tablet, Take 40 mg by mouth Once per day., Disp: , Rfl: Blood Pressure kit, 1 each 1 (one) time per week., Disp: 1 kit, Rfl: 0 cholecalciferol (D2000 Ultra Strength) 50 MCG (1999 UT) capsule, Take 2,000 Units by mouth Once perday., Disp: , Rfl: cyclobenzaprine (Flexeril) 10 MG tablet, Take 10 mg by mouth if needed in the morning, at noon, andat bedtime., Disp: , Rfl: diazePAM (Valium) 2 MG tablet, Take 2 mg by mouth if needed at bedtime., Disp: , Rfl: gabapentin (Neurontin) 300 MG capsule, Take 300 mg by mouth 2 times daily., Disp: , Rfl: Multiple Vitamins-Minerals (Oncovite) tablet, Take 1 tablet by mouth Once per day., Disp: , Rfl: NIFEdipine XL (Procardia XL) 30 MG 24 hr tablet, Take 1 tablet (30 mg) by mouth Once per day. Do not crush, chew, or split., Disp: 90 tablet, Rfl: 1 SUMAtriptan (Imitrex) 100 MG tablet, Take 1 tablet (100 mg) by mouth 1 (one) time if needed for migraine., Disp: 9 tablet, Rfl: 3 Vitamin E 670 MG (1000 UT) capsule, Take 1,000 Units by mouth Once per day., Disp: , Rfl: NIFEdipine CC (Adalat CC) 30 MG 24 hr tablet, TAKE 1 TABLET BY MOUTH ONCE DAILY. DO NOT BREAK, CRUSH, DISSOLVE OR CHEW, Disp: 90 tablet, Rfl: 0 NIFEdipine XL (Procardia XL) 60 MG 24 hr tablet, TAKE 1 TABLET BY MOUTH EVERY DAY, Disp: 90 tablet,Rfl: 0 documented in this encounter Miscellaneous Notes * Addendum Note - Kathy Casanova DO - 03/10/2024 10:45 AM ESTAddended by: KATHY CASANOVA on: 04/20/2024 07:43 AM Modules accepted: Orders documented in this encounter Plan of Treatment Scheduled Referrals Name Type Priority Associated Diagnoses Order Schedule Referral to Gynecology Outpatient Referral Routine Labial cyst Expected: 04/20/2024 (Approximate), Expires: 04/20/2025 Referral to Physical Therapy Outpatient Referral Routine Chronic pain of right upper extremity Expected: 04/20/2024 (Approximate), Expires: 04/20/2025 Referral to Neurology Outpatient Referral Urgent Seizure (CMS/HCC) Expected: 04/20/2024 (Approximate), Expires: 04/20/2025 Referral to Occupational Therapy Outpatient Referral Routine Right carpal tunnel syndrome Expected: 04/20/2024 (Approximate), Expires: 04/20/2025 documented as of this encounter Procedures Procedure Name Priority Date/Time Associated Diagnosis Comments MR CERVICAL SPINE WO CONTRAST Routine 05/05/2024 6:13 PM EST Chronic pain of right upper extremity documented in this encounter Results * MR Cervical Spine w/o Contrast (05/05/2024 6:13 PM EST) Anatomical Region Laterality Modality Spine, C-spine Magnetic Resonan ce 05/05/2024 6:13 PM EST Narrative 05/06/2024 7:23 AM EST ? [facility] ?[address] ?[place] [address] ? Magnetic Resonance Report ? Signed ? Patient: Rose Mao ?MR#: [id number] ?? [id number] ? : 1975 ?Acct:[id number] ? Age/Sex: 49 / F ?ADM Date: 05/05/24 ? Loc: HO.MRI ? Attending Dr: Kathy Casanova DO ? Ordering Physician: Kathy Casanova DO ?? Date of Service: 05/05/24 ?? Procedure(s): MR cervical spine wo con ?? Accession Number(s): [id number] ? cc: Kathy Casanova DO ? EXAMINATION: ?? MR CERVICAL SPINE WITHOUT CONTRAST ? CLINICAL INFORMATION: ?? Cervical radiculopathy. EMG/and POLITICAL CARTOONIST, right upper extremity numbness ?? weakness and [...] Saldaña MD ??05/06/2024 07:19 AM ?? EST RP ? Dictated By: ?Tello Colindres MD ? Signed By: ?<Electronically signed by Tello Anand MD in OV> ? 05/06/24 0719 ? DD/ 1813 ? TD/TT: 05/05/24 1835 ? Dip Tanker: ? Procedure Note Donotvicinterpreter, Image - 05/06/2024 [place] [id number] Magnetic Resonance Report Signed Patient: Rose MaoMR#: [id number] : 1975Acct:[id number] Age/Sex: 49 / FADM Date: 05/05/24 Loc: HO.MRI Attending Dr: Kathy Casanova DO Ordering Physician: Kathy Casanova DO Date of Service: 05/05/24 Procedure(s): MR cervical spine wo con Accession Number(s): [id number] cc: Kathy Casanova DO EXAMINATION: MR CERVICAL SPINE WITHOUT CONTRAST CLINICAL INFORMATION: Cervical radiculopathy. 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 [...] Tello Anand MDin OV> 05/06/24 0719 DD/ 1813 TD/TT: 05/05/24 1835 Dip Tanker: Kathy Casanova DO IMG MRI PROCEDURES Final Res ult documented in this encounter Visit Diagnoses Diagnosis Essential hypertension- Primary Unspecified essential hypertension Other hyperlipidemia Posttraumatic stress disorder Chronic migraine Microalbuminuria Proteinuria Chronic pain of right upper extremity Right carpal tunnel syndrome Carpal tunnel syndrome Seizure (CMS/HCC) Other convulsions Labial cyst Other specified noninflammatory disorder of vulva and perineum Healthcare maintenance Encounter for immunization documented in this encounter Additional Health Concerns Assessment Noted Time PHQ-9 Depression Total Score: 15 03/10/ 024 1:37 PM EST documented as of this encounter Care Teams Sack Repairer Relationship Specialty Start Date End Date Kathy Casanova DO [address] [place] [id number] PCP - General Family Medicine 09/23/23 documented as of this encounter
--- OUTSIDE RECORDS SUMMARY | 2024-05-14 15:45 | XMS_ITS | Continuity of Care Document ---
Author Organization [facility] Address [address] [place] [address] Phone Care Team Providers Care Oyster Farmer Name Role Phone Trung Verdugo MD Unavailable Unavailable Procedures Procedure Date Void Encounter Number Advance Directives Directive Yes / No Effective Date File Name No Information Encounters Encounter Description Practice Location Reason(s) For Visit Diagnoses Date Provider Providers Copied on Encounter [facility], [address], [place], [id number], [place] tel:[phone] [facility] - [facility] No Information Kartik Nino. [address] [place] [address], [facility], [place]. tel:[phone] Family History Family Member Type Diagnosis Age At Onset No Information Payers Payer name Insurance type Covered republican ID Authoriza tion(s) No Information Social History Type Description Quantity Date Captured Comments Sex Female Smoking Status No Information Chief Complaint And Reason For Visit No Information Reason For Referral Reason For Referral No Information History Of Present Illness Encounter Date Complaint History Of Prese nt Illness No Information Functional Status Date Functional Assessmen t No Information Instructions Date Instruction Additional Infor mation No Information Assessments Type Assessment Date No Information Patient Care Teams Name Effective Dates (start - stop) Status Members No Information
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
--- OUTSIDE RECORDS SUMMARY | 2024-05-14 15:45 | XMS_ITS | Encounter Summary ---
Author Organization [email or web address] Address [address] 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 Patient reports she has a neurosurgeon (Dr. Elias Mckeon) who she saw for her workers comp in the past (2016) and had a lumbar fusion with him. Patient is unsure if she can see this provider for a non workers comp concern. [facility] Patient advised she will receive a letter in the mail or a call from the office with appointment date and time and advised to not miss the appointment. Patient verbalized understanding. Patient to f/u PRN. * Telephone Encounter - Juliane Martin RN - 05/08/2024 11:41 AM EST RN reviewed MRI lumbar spine results with PCP. PCP would like to refer patient to [facility] d/t multilevelcervical spondylosis and R neuroforamina stenosis. [facility] TC placed to patient [phone] to inform of above message. Patient did not answer, RN left requesting CB to red team nurses. RN will re-attempt in PM. documented in this encounter Plan of Treatment Not on file documented as of this encounter Visit Diagnoses Not on filedocumented in this encounter Additional Health Concerns Assessment Noted Time PHQ-9 Depression Total Score: 15 024 1:37 PM EST documented as of this encounter Care Teams Roof Bolting Coal Miner Relationship Specialty Start Date End Date Stephany Casanova DO [address] [place] [address] PCP - General Family Medicine 09/23/23 documented as of this encounter
[2024-05-14 15:54] LABS: Anion Gap 13 (12-20); Blood Urea Nitrogen 18 mg/dL (9-16); Calcium 9.4 mg/dL (8.4-10.2); Carbon Dioxide 28 mmol/L (22-29); Chloride 109 mmol/L (96-108); Estimated Glomerular Filt Rate > 60; Glucose Random 81 mg/dL (60-115); Potassium 3.9 mmol/L (3.3-5.1); Sodium 146 mmol/L (135-145)
== END 2024-05-14 14:35 | disposition home or self-care (01) ==
LOC: HO.LAB 14:34
PROVIDERS: PCP Family Medicine; Visit Provider Nurse Practitioner Family
DX: N18.30 Chronic kidney disease, stage 3 unspecified (principal); I10 Essential (primary) hypertension; R35.1 Nocturia
CPT/HCPCS: 36415; 80048; 81001

== ENCOUNTER 2024-05-19 12:32 | Outpatient (AMB) | payer MEDICAID, SELFPAY ==
[2024-05-19 13:11] VITALS: BP 140/98; PULSE 85; O2SAT 97; BMI 30.5
--- NOTE | 2024-05-19 13:11 | HO.NEPHOV ---
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: No Accompanied by: Self / Same As Patient Allergies epinephrine Allergy (Unknown, Verified 05/19/24 13:13) Flushing tramadol Allergy (Unknown, Verified 05/19/24 13:13) Shortness of Breath Medication List - Last Reconciled 05/19/24 by Tyrell Briscoe MD ascorbic acid (vitamin C) ER 500 mg PO DAILY atorvastatin 40 mg PO DAILY cholecalciferol (vitamin D3) 50 mcg PO DAILY cyclobenzaprine 10 mg PO BEDTIME gabapentin 600 mg PO BEDTIME gabapentin 600 mg PO BEDTIME nifedipine ER 60 mg PO DAILY nifedipine ER 30 mg PO DAILY sumatriptan succinate 100 mg PO ONCE PRN HPI Comments Details: 48 y/o female with a medical hx of essential HTN, HLD, migraines, PTSD, obesity, chronic migraine, HLD, bladder prolapse (s/p sling for incontinence), hx of lumbar fusion, former smoker. referred by PCP for reported hx of stage 2 kidney disease. reports previously on lisinopril 2 or so years ago, then reduced renal function developed, so lisinopril was weaned off. reports also lost weight at that time so did not need additional blood pressure medication. Renal function then improved. she has since struggled with additional weight gain, was started on nifedipine 60mg daily which was recently increased to 90mg daily due to continued uncontrolled blood pressure. She reports nifedipine is the only blood pressure medication she has tried that has been effective. labs (scanned) microalbumin to creatinine ratio was 11.3 creatinine, serum 0.94 eGFR >60 A1c 5.4 has had high blood pressure since she was young- diagnosed age 18. mom hypertension, and both of her parents, also her brothers, one has passed reports brother from sleep apnea, passed suddenly in his sleep age 30 alcohol use is quite rare former smoker, quit when she was 17, then smoked from age [age]. reports chronic swelling in her legs since January of 2022 she swells when she eats salt so she avoids this, cooks and does not add salt she does note some chronic/mild dyspnea with exertion up stairs, worse when she put on more weight no NSAIDs frequent urination at night- 5x nightly, but can be more or less does try to drink a lot of water and cranberry juice (sugar-free), guesses 64 ounces daily chronic low back pain but no new issues with flank pain no dysuria, hematuria, or other urinary symptoms PFSH Medical History (Updated 12/17/23 @ 12:09 by Emiliana Lazaro DNP, HALLIE-BC) History of tobacco use History of COVID-19 Female bladder prolapse Hyperlipemia Essential hypertension Mixed stress and urge urinary incontinence BMI 31.0-31.9,adult Posttraumatic stress disorder Surgical History History of tonsillectomy History of lumbar fusion History of hysterectomy H/O section History of bladder suspension procedure Hx of appendectomy Family History (Updated 12/17/23 @ 11:49 by Emiliana Lazaro DNP, HALLIE-BC) Mother HTN (hypertension) Father Diabetes mellitus Brother No problems noted. Physical Exam Vital Signs: Last Vital Signs Pulse 85 05/19/24 13:11 BP 140/98 H 05/19/24 13:11 Pulse Ox 97 05/19/24 13:11 Oxygen Delivery Method Room Air 05/19/24 13:11 BMI result Body Mass Index 30.5 Comfortable Neck supple no JVD. Lungs entry equal no rales. Heart S1-S2 heard no gallop or rub. Abdomen soft nontender. Neuro alert awake oriented. No asterixis. Extremities 1 to 2+ edema. Results Reviewed Nephrology Results: Sodium 146 mmol/L (135-145) H 05/14/24 Potassium 3.9 mmol/L (3.3-5.1) 05/14/24 Chloride 109 mmol/L (96-108) H 05/14/24 Carbon Dioxide 28 mmol/L (22-29) 05/14/24 BUN 18 mg/dL (9-16) H 05/14/24 Creatinine 0.92 mg/dL (0.5-1.4) 05/14/24 Calcium 9.4 mg/dL (8.4-10.2) 05/14/24 Urine Protein Negative mg/dL (Neg-Trace) 05/14/24 Assessment & Plan Assessment & Plan (1) Nocturia: Code(s): R35.1 - Nocturia Category: Medical Plan: Chronic, persistent May have component of CARLA that is contributory, though given pt has lost weight since remote sleep study this is less likely advised minimize fluids before bedtime (2) Hypertension: Code(s): I10 - Essential (primary) hypertension Category: Medical Qualifiers: Hypertension type: primary hypertension Qualified Code(s): I10 - Essential (primary) hypertension Plan: Med change as below continue regular exercise and healthy diet for weight loss, avoid added salt in diet (3) Bilateral lower extremity edema: Code(s): R60.0 - Localized edema Category: Medical Plan: Chronic, persistent Nifedipine is likely contributing- given pt reports this is the only blood pressure medicine that has worked well for her, we will continue to monitor she continues to avoid salt elevate legs, compression stockings she will call if swelling worsens Decrease Nifedipine to 30 mg QD ADD Valsartan 80 mg daily Mild hypernatremia due tp free water deficit Increase PO water intake Orders: Orders Basic Metabolic Panel 1 Month I10 - Essential (primary) hypertension Basic Metabolic Panel 6 Months I10 - Essential (primary) hypertension, R60.0 - Localized edema Medications: New valsartan 80 mg PO DAILY 90 tabs 0RF Coding Level of Care Code Est Pt Level 4 (62590) Diagnoses Nocturia R35.1 Primary hypertension I10 Hypertension type: primary hypertension Bilateral lower extremity edema R60.0
--- OUTSIDE RECORDS SUMMARY | 2024-05-19 15:14 | XMS_ITS | Clinical Summary ---
Author Organization [employer] Address [address] [facility] [place] [address] Care Team Providers Care Head Pumper Name Role Phone Stephany Casanova DO Primary [...] intervention , Patient to reach out to [facility] team as needed, and Patient to engage [...] DEPARTMENT Provider, Generic External Data 05/08/2024 Telephone [facility] [address] [place] [address] Stephany Casanova DO Results 04/03/2024 Telephone [facility] [address] [place] [address] Stephany Casanova DO Med Refill 04/03/2024 Refill [facility] [address] [place] [address] Stephany Casanova DO 04/02/2024 Refill [facility] [address] [place] [address] Gauri Lee MD 03/31/2024 Telephone [facility] [address] [place] [phone] Stephany Casanova DO Referral 03/25/2024 Refill [facility] [address] [place] [address] Stephany Casanova DO 03/10/2024 10:45 AM EST Office Visit [facility] [place] [address] Stephany Casanova DO Essential hypertension (Primary Dx); [...] Procedure Name Priority Date/Time Associated Diagnosis Comments BASIC METABOLIC PANEL Routine 05/14/2024 2:44 PM EST URINALYSIS, COMPLETE Routine 05/14/2024 2:41 PM EST [...] Recently Relevant to Health Maintenance Results * (ABNORMAL) Basic Metabolic Panel (05/14/2024 2:44 PM EST) Sodium 146(H) 135 - 145 mmol/L [facility] Potassium 3.9 3.3 - 5.1 mmol/L [facility] Chloride 109(H) 96 - 108 mmol/L [facility] Carbon Dioxide 28 22 - 29 mmol/L [facility] Anion Gap 13 12 - 20 [facility] Urea Nitrogen (BUN) 18(H) 9 - 16 mg/dL [facility] Creatinine, Serum 0.92 0.5 - 1.4 mg/dL [facility] Estimated Glomerular Filt Rate >60 [facility] Comment:Chronic Kidney Disea se: Estimated GFR < 60 mL/min/1.19h9Nqqeww Kidney Disease: Estimated GFR < 15 mL/min/1.73m2 Glucose 81 60 - 115 mg/dL [facility] Calcium 9.4 8.4 - 10.2 mg/dL [facility] 05/14/2024 2:44 PM EST 05/14/2024 2:44 PM EST us Generic External Data Provider LAB BLOOD ORDERAB LES Final Result Performing Organization Address [facility] Co de Phone Number [facility] [address] [place] [phone] * Urinalysis Complete (05/14/2024 2:41 PM EST) Color Urine Yellow [facility] Appearance Urine Clear [facility] PH 7.5 5.0 - 9.0 [facility] Glucose Urine UA Negative Negative mg/dL [facility] Urine Blood Negative Negative [facility] Specific [place] - Urine 1.020 1.005 - 1.025 [facility] Urine Protein Negative Neg-Trace mg/dL [facility] Urine Ketones Negative Negative mg/dL [facility] Nitrite Urine Negative Negative [facility] Leukocyte Esterase Urine Negative Negative [facility] RBC Urine 0-2 0 - 2 /HPF [facility] Urine WBC 0-5 0 - 5 /HPF [facility] Urine Squamous Epithelial Cell 0-2 0 - 2 /HPF [facility] Urine Bacteria None Seen None Seen [facility] Hyaline Casts, Urine 0-2 0 - 2 /LPF [facility] 05/14/2024 2:41 PM EST 05/14/2024 3:24 PM EST us Generic External Data Provider LAB URINE ORDERAB LES Final Result Performing Organization Address City/[facility] [address]/ZIP Co de Phone Number [facility] [address] [place] [phone] * MR Cervical Spine w/o Contrast (05/05/2024 6:13 PM EST) Anatomical Region Laterality Modality Spine, C-spine Magnetic Resonan ce 05/05/2024 6:13 PM EST Narrative 05/06/2024 7:23 AM EST ? [facility] ?[address] ?[place] [address] ? Magnetic Resonance Report ? Signed ? Patient: Rose Mao ?MR#: [id number] ?? [id number] ? : 1975 ?Acct:[id number] ? Age/Sex: 49 / F ?ADM Date: 05/05/24 ? Loc: HO.MRI ? Attending Dr: Stephany Casanova DO ? Ordering Physician: Stephany Casanova DO ?? Date of Service: 05/05/24 ?? Procedure(s): MR cervical spine wo con ?? Accession Number(s): [id number] ? cc: Stephany Casanova DO ? EXAMINATION: ?? MR CERVICAL SPINE WITHOUT CONTRAST ? CLINICAL INFORMATION: ?? Cervical radiculopathy. EMG/and TIP LENGTH CHECKER, right upper extremity numbness ?? weakness and [...] DD/ 1813 ? TD/TT: 05/05/24 1835 ? General Labor: ? Procedure Note Ju Toure - 05/06/[address] [address] Magnetic Resonance Report Signed Patient: Rose MaoMR#: [id number] : 1975Acct:[id number] Age/Sex: 49 / FADM Date: 05/05/24 Loc: HO.MRI Attending Dr: Stephany Casanova DO Ordering Physician: Stephany Casanova DO Date of Service: 05/05/24 Procedure(s): MR cervical spine wo con Accession Number(s): [id number] cc: Stephany Casanova DO EXAMINATION: MR CERVICAL SPINE WITHOUT CONTRAST CLINICAL INFORMATION: Cervical radiculopathy. EMG/and TIP LENGTH CHECKER, right upper extremity numbness weakness and pain. [...] Tello Saldaña MD 05/06/2024 07:19 AM EST RP Dictated By: Tello Colindres MD Signed By: <Electronically signed by Tello Anand MDin OV> 05/06/24 0719 DD/ 12 TD/TT: 05/05/24 183 General Labor: us Stephany Casanova DO IMG MRI PROCEDURES Final Res ult * BI Mammogram Screening Tomosynthesis Bilateral (11/26/2023 10:15 AM EDT) Anatomical Region Laterality Modality Breast Bilateral Mammography 11/26/2023 10:1 5 AM EDT Narrative 12/17/2023 1:33 PM EDT ? [facility] ? [address] ?[place] [address] ? Mammography Report ? Signed ? Patient: Mayco,Rose ?MR#: [id number] ?? [id number] ? : 1975 ?Acct:[id number] ? Age/Sex: 48 / F ?ADM Date: 11/25/24 ? Loc: HO.MAMMO ? Attending : Stephany Casanova DO ? Ordering Physician: Stephany Casanova DO ?Results: 2B ?? enign Findings ? Date of Service: 11/26/23 ?Follow Up: 1 Year From Orig ?? inal Mammogram ? Procedure(s): MM tomosynthesis screening BI ?? Accession Number(s): [id number] ? cc: Stephany Casanova DO ? EXAMINATION: [...] next mammogram. ? Electronically signed by: ??Berna Corbett DO ??12/17/2023 01:30 PM EDT ?? RP ? Dictated By: ?Berna Corbett DO ? Signed By: ?<Electronically signed by Berna Corbett, DO in OV> ? 12/17/23 1330 ? DD/ 1015 ? TD/TT: 11/26/23 1040 ? General Labor: ? Procedure Note Donotuseinterpreter, Image - 12/17/2023 [place] [facility] [address] [place] [address] Mammography Report Signed Patient: Rose MaoMR#: [id number] : 1975Acct:[id number] Age/Sex: 48 / FADM Date: 11/26/23 Loc: HO.MAMMO Attending Dr: Stephany Casanova DO Ordering Physician: Stephany Casanovaults: 2B enign Findings Date of Service: 11/26/23Follow Up: 1 Year From Orig inal Mammogram Procedure(s): MM tomosynthesis screening BI Accession Number(s): [id number] cc: Stephany Casanova DO EXAMINATION: MM SCREENING [...] Berna Corbett DO 12/17/2023 01:30 PM EDT Dictated By: Berna Corbett DO Signed By: <Electronically signed by Berna Corbett DO in OV> 12/17/23 1330 DD/ 1015 TD/TT: 11/26/23 1040 General Labor: us Stephany Casanova DO IMG BI PROCEDURES Final Resu lt * Hepatitis C Antibody with Reflex to HCV, RNA, Quantitative, Real-Time PCR (09/23/2023 12:12 PM EDT) Hepatitis C Antibody Nonreactive Nonreactive [facility] Comment:Antibodies to HCV no t detected; does not exclude early acuteHCV infection. Blood Venous blood specimen / Unknown 09/23/2023 12:12 PM EDT 09/23/2023 1:13 PM EDT Stephany Casanova LAB BLOOD ORDERABLES Final R esult Performing Organization Address [facility] Co de Phone Number [facility] [address] [place] [phone] * HIV-1/2 Antigen and Antibodies, Fourth Generation, with Reflexes (09/23/2023 12:12 PM EDT) Pathologist [facility] HIV AB/AG Nonreactive Nonreactive [facility] Comment:HIV-1 p24 Ag and/or HIV-1/HIV-2 Ab not detected.A test result that is nonreactive does not exclude thepossibility of exposure to or infection with HIV-1 and/orHIV-2. Nonreactive results in this assay for individualswith prior exposure to HIV-1 and/or HIV-2 may be due toantigen and antibody levels that are below the limit ofdetection of this assay.The [employer] HIV Ag/Ab Combo assay result andsupplemental assay results should be interpreted inconjunction with the patient's clinical presentation,history and other laboratory results. If the results areinconsistent with clinical evidence, additional testing issuggested to confirm the result. Blood Venous blood specimen / Unknown 09/23/2023 12:12 PM EDT 09/23/2023 1:13 PM EDT us Stephany Jocelyne LAB BLOOD ORDERABLES Final R esult Performing Organization Address City/[facility] [address]/ZIP Co de Phone Number [facility] [address] [place] [phone] * (ABNORMAL) Lipid Panel, Standard (09/23/2023 12:12 PM EDT) Triglycerides 191(H) <150 mg/dL [facility] Comment:Desirable Triglyceri de: less than 150 mg/dLBorderline High Triglyceride 150-199 mg/dLHigh Triglyceride: 200-499 mg/dLVery High Triglyceride: greater than or equal to 5OO mg/dL Cholesterol 249(H) <200 mg/dL [facility] Comment:Desirable Cholestero l: less than 200 mg/dLBorderline High Cholesterol: 200-239 mg/dLHigh Cholesterol: greater than 239 mg/dL LDL Cholesterol Calculated 139(H) <100 mg/dL [facility] Comment:Desirable LDL: less than 100 mg/dLNear Optimal/Above Optimal LDL: 110- 129 mg/dLBorderline High LDL: 130-159 mg/dLHigh LDL: 160-189 mg/dLVery High LDL: greater than or equal to 190 mg/dL HDL Cholesterol 72 >40 mg/dL [facility] Comment:Desirable HDL: great er than 40 mg/dL Note: This HDL assay may give artificially low results in patients with liver disease. Blood Venous blood specimen / Unknown 09/23/2023 12:12 PM EDT 09/23/2023 1:16 PM EDT us Stephany Casanova DO LAB BLOOD ORDERABLES Final R esult [facility] [address] [place] [address] [phone] from Last 3 Months or Most Recently Relevant to Health Maintenance Insurance [facility] C3 Care Teams Head Pumper Relationship Specialty Start Date End Date Stephany Casanova DO [address] [place] [address] PCP - General Family Medicine 09/23/23
--- OUTSIDE RECORDS SUMMARY | 2024-05-19 15:14 | XMS_ITS | Encounter Summary ---
Author Organization [employer] Address 75 [facility] 7t [place] [address] Care Team Providers Care Toxicologist Name Role Phone Stephany Casanova DO Primary Care Provider Reason for Visit * Reason Onset Date Comments Results 05/08/2024 Encounter Details Date Type Department Care Team ([facility] Contact Info) Description 05/08/2024 Telephone [facility] [address] [place], [place] [phone] Stephany Casanova DO [address] [place], [place] [phone] Results Social History Tobacco Use Types Packs/Day [...] 4:37 PM EST TC placed to patient [phone] in regards to below message. Patient reports she has a neurosurgeon (Dr. Elias Mckeon) who she saw for her workers comp in the past (2016) and had a lumbar fusion with him. Patient is unsure if she can see this provider for a non workers comp concern. [facility] Patient advised she will receive a letter [...] [facility]. TC placed to patient [phone] to inform of above message. Patient did [...] documented as of this encounter Care Teams Toxicologist Relationship Specialty Start Date End Date Stephany Casanova DO [address] [place] [address] PCP - General Family Medicine 09/23/23 documented as of this encounter
--- OUTSIDE RECORDS SUMMARY | 2024-05-19 15:14 | XMS_ITS | Encounter Summary ---
Author Organization [employer] Address [address] [place] [address] Care Team Providers Care Electronic Wirer Name Role Phone Kathy Casanova DO Primary Care Provider Reason for Referral * Consultation (Routine) - Closed Specialty Diagnoses / Procedures Referred By Heidy atwood Referred To Contact Occupational Therapy Diagnoses Right carpal tunnel syndrome Kathy Casanova DO [address] [place] [address] Phone: tel: fax: [facility] Physical Therapy [address] [place] [address] Phone: tel: fax: Referral ID Status Reason Start Date Expiration Date V isits Requested Visits Authorized [id number] Closed Specialty Services Required 04/21/2024 04/21/2025 20 20 * Imaging (Routine) - Closed Specialty Diagnoses / Procedures Referred By Heidy atwood Referred To Contact Radiology Diagnoses Chronic pain of right upper extremity Procedures MR Cervical Spine w/o Contrast Kathy Casanova DO [address] [place] [address] Phone: tel: fax: [address] Phone: tel: fax: Referral ID Status Reason Start Date Expiration Date Visits Re quested Visits Authorized [id number] Closed 04/20/2024 04/20/2025 1 1 * Consultation (Urgent) - Authorized Specialty Diagnoses / Procedures Referred By Contac t Referred To Contact Neurology Diagnoses Seizure (CMS/HCC) Kathy Casanova DO [address] [place] [address] Phone: tel: fax: [facility] Referral ID Status Reason Start Date Expiration Date Visits Requested Visits Authorized [id number] Authorized Specialty Services Required 04/20/2024 04/20/2025 6 6 * Consultation (Routine) - Closed Specialty Diagnoses / Procedures Referred By Heidy t Referred To Contact Physical Therapy Diagnoses Chronic pain of right upper extremity Kathy Casanova DO [address] [place] [address] Phone: tel: fax: [facility] Physical Therapy [address] [place] [address] Phone: tel: fax: Referral ID Status Reason Start Date Expiration Date V isits Requested Visits Authorized [id number] Closed Specialty Services Required 04/20/2024 04/20/2025 20 20 * Consultation (Routine) - Authorized Specialty Diagnoses / Procedures Referred By Heidy t Referred To Contact Obstetrics and Gynecology Diagnoses Labial cyst Kathy Casanova DO [address] [place] [address] Phone: tel: fax: [facility] [address] 5[address] (Main Hospital Entrance) [place], [place] Phone: tel: fax: Referral ID Status Reason Start Date Expiration Date Visits Requested Visits Authorized [id number] Authorized Specialty Services Required 04/20/2024 04/20/2025 9 9 Encounter Details Date Type Department Care Team (Late st Contact Info) Description 03/10/2024 10:45 AM EST Office Visit [facility] [address] [facility] [place] [address] Kathy Casanova DO [address] [facility] [place] [address] Essential hypertension (Primary Dx); Other hyperlipidemia; Posttraumatic [...] last pap prior to the surgery at [facility]. Review of Systems Constitutional: Negative for [...] Mood normal. The 10-year ASCVD risk score (Brooklyn DK, et al., 2019) is: 1.2% Values [...] for EKG next visit* -awaiting copy of Lysanda eval Other hyperlipidemia LDL at goal September [...] plans Right carpal tunnel syndrome -EMG/NCS with opeb-xk-xayyocmf right median neuropathy across carpal tunnel Dec [...] Persistent sx x one year -referred to GERIATRIC SOCIAL WORK PROFESSOR for eval Healthcare maintenance -flu vaccine today -she declines COVID vaccine -Tdap today -encouraged shingrix vaccine -Hep B immune -mammo BIRADS 2 Nov 2023 -advised contact GI to schedule colonoscopy -s/p hysterectomy, will attempt to get operative records and pap results from [facility] -A1c 5.26 September 2023 -STI/HIV screen [...] EST Narrative 05/06/2024 7:23 AM EST ? [facility] ?[address] ?[place] [address] ? Magnetic Resonance Report ? Signed ? Patient: Rose Mao ?MR#: [id number] ?? [id number] ? : 1975 ?Acct:[id number] ? Age/Sex: 49 / F ?ADM Date: 05/05/24 ? Loc: HO.MRI ? Attending Dr: Kathy Casanova DO ? Ordering Physician: Kathy Casanova DO ?? Date of Service: 05/05/24 ?? Procedure(s): MR cervical spine wo con ?? Accession Number(s): [id number] ? cc: Kathy Casanova DO ? EXAMINATION: ?? MR CERVICAL SPINE WITHOUT CONTRAST ? CLINICAL INFORMATION: ?? Cervical radiculopathy. EMG/and BUSINESS ADMINISTRATOR, right upper extremity numbness ?? weakness and [...] DD/ 1813 ? TD/TT: 05/05/24 1835 ? Show Jumping Instructor: ? Procedure Note Donotvicinterpreter, Image - 05/06/2024 [place] [address] Magnetic Resonance Report Signed Patient: Rose MaoMR#: [id number] : 1975Acct:[id number] Age/Sex: 49 / FADM Date: 05/05/24 Loc: HO.MRI Attending Dr: Kathy Casanova DO Ordering Physician: Kathy Casanova DO Date of Service: 05/05/24 Procedure(s): MR cervical spine wo con Accession Number(s): [id number] cc: Kathy Casanova DO EXAMINATION: MR CERVICAL SPINE WITHOUT CONTRAST CLINICAL INFORMATION: Cervical radiculopathy. EMG/and BUSINESS ADMINISTRATOR, right upper extremity numbness weakness and pain. [...] 05/06/24 0719 DD/ 1813 TD/TT: 05/05/24 1835 Show Jumping Instructor: Kathy Casanova DO IMG MRI PROCEDURES Final [...] documented as of this encounter Care Teams Electronic Wirer Relationship Specialty Start Date End Date Kathy Casanova DO [address] [place] [phone] PCP - General Family Medicine 09/23/23 documented as of this encounter
--- OUTSIDE RECORDS SUMMARY | 2024-05-19 15:14 | XMS_ITS | Encounter Summary ---
Author Organization [employer] Address [address] [facility] [address] 7t [place] [address] Care Team Providers Care Acetaldehyde Converter Operator Name Role Phone Stephany Casanova Primary Care Provider Encounter Details Date Type Department Care Team (Late st Contact Info) Description 05/14/2024 Orders Only GENERIC EXTERNAL DATA DEPARTMENT Provider, Generic External Data Social History Tobacco Use Types Packs/Day Years [...] on file documented as of this encounter Procedures Procedure Name Priority Date/Time Associated Diagnosis Comments BASIC METABOLIC PANEL Routine 05/14/2024 2:44 PM EST URINALYSIS, COMPLETE Routine 05/14/2024 2:41 PM EST documented in this encounter Results * (ABNORMAL) Basic Metabolic Panel (05/14/2024 2:44 PM EST) Sodium 146(H) 135 - 145 mmol/L [facility] Potassium 3.9 3.3 - 5.1 mmol/L [facility] Chloride 109(H) 96 - 108 mmol/L [facility] Carbon Dioxide 28 22 - 29 mmol/L [facility] Anion Gap 13 12 - 20 [facility] Urea Nitrogen (BUN) 18(H) 9 - 16 mg/dL [facility] Creatinine, Serum 0.92 0.5 - 1.4 mg/dL [facility] Estimated Glomerular Filt Rate >60 [facility] Comment:Chronic Kidney Disea se: Estimated GFR < 60 mL/min/1.02z0Mesnfi Kidney Disease: Estimated GFR < 15 mL/min/1.73m2 Glucose 81 60 - 115 mg/dL [facility] Calcium 9.4 8.4 - 10.2 mg/dL [facility] 05/14/2024 2:44 PM EST 05/14/2024 2:44 PM EST us Generic External Data Provider LAB BLOOD ORDERAB LES Final Result [facility] [address] [place] [phone] * Urinalysis Complete (05/14/2024 2:41 PM EST) Color Urine Yellow [facility] Appearance Urine Clear [facility] PH 7.5 5.0 - 9.0 [facility] Glucose Urine UA Negative Negative mg/dL [facility] Urine Blood Negative Negative [facility] Specific [place] - Urine 1.020 1.005 - 1.025 [facility] Urine Protein Negative Neg-Trace mg/dL [facility] Urine Ketones Negative Negative mg/dL [facility] Nitrite Urine Negative Negative [facility] Leukocyte Esterase Urine Negative Negative [facility] RBC Urine 0-2 0 - 2 /HPF [facility] Urine WBC 0-5 0 - 5 /HPF [facility] Urine Squamous Epithelial Cell 0-2 0 - 2 /HPF [facility] Urine Bacteria None Seen None Seen [facility] Hyaline Casts, Urine 0-2 0 - 2 /LPF [facility] 05/14/2024 2:41 PM EST 05/14/2024 3:24 PM EST us Generic External Data Provider LAB URINE ORDERAB LES Final Result [facility] [address] [place] [phone] [phone] documented in this encounter Visit Diagnoses Not on filedocumented in this encounter Additional Health Concerns Assessment Noted Time PHQ-9 Depression Total Score: 15 03/10/2 024 1:37 PM EST documented as of this encounter Care Teams Acetaldehyde Converter Operator Relationship Specialty Start Date End Date Stephany Casanova DO [address] [place] [phone] PCP - General Family Medicine 09/23/23 documented as of this encounter
--- OUTSIDE RECORDS SUMMARY | 2024-05-19 15:14 | XMS_ITS | Encounter Summary ---
Author Organization [employer] Address [address] [facility] [address] [place] [address] Care Team Providers Care Family Development Extension Specialist Name Role Phone Stephany Casanova Primary Care Provider [phone] Reason for Visit * Reason Comments Med Refill Encounter Details Date Type Department Care Team ([facility] st Contact Info) Description 04/02/2024 Refill [facility] MED[facility]INE [address] [place], [place] [phone] Gauri Lee MD [address] [place], [place] [phone] Social History Tobacco Use Types Packs/Day Years [...] documented as of this encounter Care Teams Family Development Extension Specialist Relationship Specialty Start Date End Date Stephany Casanova DO [address] [place] [phone] PCP - General Family Medicine 09/23/23 documented as of this encounter
--- OUTSIDE RECORDS SUMMARY | 2024-05-19 15:14 | XMS_ITS | Patient Health Record ---
Author Organization Rodrigo Do MD Address [address] [place] [phone] Care Team Providers Care Boilermaker Apprentice Name Role Phone Suman Root Primary Care Provider Unavailab nadir Mckeon MD, MD, Elias Unavailable Unavailabl e Allergies Allergen (clinical drug ingredient) Drug/Non Drug Allergy documented on EMR Reaction Allergy Type Onset Date Status ePHEDrine HCl Unknown Drug Allergy Act sara Reason For Referral No Information Medications Medication SIG (Take, Route, Frequency, Duration) Notes [...] as needed Orally Twice a day Active Social History Tobacco Use: Social History Observation Description Date Details (start date - stop date) Former Smoker NA - NA Tobacco Use/Smoking Question Answer Notes Do you smoke? former smoker Section Notes: Tobacco none x5 years, alcoh ol occasional. 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) Active confirmed Problem 80737235 Intervertebral d isc disorder with radiculopathy of lumbosacral region (M51.17) Active confirmed Problem 27786895 Spinal stenosis of lumbosacral region (M48.07) Active confirmed Plan Of Treatment No Information Insurance Providers Payer Name Payer Address Payer Phone Subscriber Number Group Number Insured Name Patient Relationship to Insured Coverage Start Date Coverage End Date Ravi Velarde W/C c[employer] [address] [place] [id number] Rose Mao Self - patient is the insured Medical (General) History Medical History History ICD Code Chronic anxiety & depression hypertension GERD prediabetic Surgical History Surgery Date(Month/Year) Tonsillectomy childhood Appendectomy 1987 Emergency 1995 Venous Ablations 2011 & 2012
== END 2024-05-19 13:42 | disposition home or self-care (01) ==
LOC: HO.HKA 12:32
PROVIDERS: PCP Family Medicine; Visit Provider Internal Medicine Hypertension Specialist
DX: R35.1 Nocturia (principal); I10 Essential (primary) hypertension; R60.0 Localized edema
CPT/HCPCS: 99214

== ENCOUNTER → 2024-05-19 12:32 | Outpatient (BNVA) | payer MEDICAID, SELFPAY | PROVIDERS: PCP Family Medicine; Visit Provider Internal Medicine Hypertension Specialist | DX: I12.9 Hypertensive chronic kidney disease with stage 1 through stage 4 chronic kidney disease, or unspecified chronic kidney disease (principal); N18.2 Chronic kidney disease, stage 2 (mild); E78.5 Hyperlipidemia, unspecified; E66.9 Obesity, unspecified; R35.1 Nocturia; R60.0 Localized edema; Z68.30 Body mass index [BMI] 30.0-30.9, adult | CPT/HCPCS: 99212 ==

== ENCOUNTER 2024-06-03 13:36 | Outpatient (REF) | payer MEDICAID, SELFPAY ==
--- OUTSIDE RECORDS SUMMARY | 2024-06-03 16:53 | XMS_ITS | Encounter Summary ---
Author Organization [employer] Address [address] [place] [address] Care Team Providers Care Modeling Agent Name Role Phone Stephany Casanova Primary Care Provider [phone] Reason for Visit * Reason Comments Med Refill Encounter Details Date Type Department Care Team ([facility] st Contact Info) Description 04/02/2024 Refill [facility] [address] [place], [place] [phone] Gauri Lee MD [address] [place], [place] [phone] Social History Tobacco Use Types Packs/Day Years [...] documented as of this encounter Care Teams Modeling Agent Relationship Specialty Start Date End Date Stephany Casanova DO [address] [place] [address] PCP - General Family Medicine 09/23/23 documented as of this encounter
--- OUTSIDE RECORDS SUMMARY | 2024-06-03 16:53 | XMS_ITS | Continuity of Care Document ---
Author Organization [facility] Address [address] [place] [address] Phone Care Team Providers Care Head Charrer Name Role Phone Trung Verdugo MD Unavailable Unavailable Procedures Procedure Date Void Encounter Number Advance Directives Directive Yes / No Effective Date File Name No Information Encounters Encounter Description Practice Location Reason(s) For Visit Diagnoses Date Provider Providers Copied on Encounter [facility], [address] [place], [place], [id number], [place] tel:[phone] [facility] - CTC No Information Kartik Nino. [address] [place] [address], [facility], [place]. tel:[phone] Family History Family Member Type Diagnosis Age At Onset No Information Payers Payer name Insurance type Covered constitution party ID Authoriza tion(s) No Information Social [...]
--- OUTSIDE RECORDS SUMMARY | 2024-06-03 16:53 | XMS_ITS | Clinical Summary ---
Author Organization [employer] Address [address] [place] [address] Care Team Providers Care Laundry Worker Name Role Phone Stephany Casanova DO Primary Care Provider [phone] Allergies Active Allergy Reactions Criticality Noted Date [...] intervention , Patient to reach out to [facility] team as needed, and Patient to engage in OP therapy BMI 31.0-31.9,adult 08/22/2023 Mixed stress and urge urinary incontinence 08/21 Chronic migraine 08/22/2023 Hyperlipidemia 08/22/2023 Essential hypertension 01/03/2016 Encounters * This document contains information received from the source organization and may not represent a complete record from that organization. Date Type Department Care Team Description 06/02/2024 Patient Outreach [facility] [address] [place] [address] Stephany Casanova DO Care Coordination (Outreach) 05/26/2024 Patient Outreach [facility] [address] [place] [address] Stephany Casanova DO Care Coordination (Outreach) 05/14/2024 Orders Only GENERIC EXTERNAL DATA DEPARTMENT Provider, Generic External Data 05/08/2024 Telephone [facility] [address] [place] [address] Stephany Casanova DO Results 04/03/2024 Telephone [facility] [address] [place] [address] Stephany Casanova DO Med Refill 04/03/2024 Refill [facility] [address] [place] [address] Stephany Casanova DO 04/02/2024 Refill [facility] [address] [place] [address] Gauri Lee MD 03/31/2024 Telephone [facility] [address] [place] [address] Stephany Casanova DO Referral 03/25/2024 Refill [facility] [address] [place] [address] Stephany Casanova DO 03/10/2024 10:45 AM EST Office Visit [facility] [address] [place] [address] Stephany Casanova DO Essential hypertension (Primary Dx); [...] EST) Sodium 146(H) 135 - 145 mmol/L [facility] Potassium 3.9 3.3 - 5.1 mmol/L [facility] Chloride 109(H) 96 - 108 mmol/L [facility] Carbon Dioxide 28 22 - 29 mmol/L [facility] Anion Gap 13 12 - 20 [facility] Urea Nitrogen (BUN) 18(H) 9 - 16 mg/dL [facility] Creatinine, Serum 0.92 0.5 - 1.4 mg/dL [facility] Estimated Glomerular Filt Rate >60 [facility] Comment:Chronic Kidney Disea se: Estimated GFR < 60 mL/min/1.27k6Hyvhwz Kidney Disease: Estimated GFR < 15 mL/min/1.73m2 Glucose 81 60 - 115 mg/dL [facility] Calcium 9.4 8.4 - 10.2 mg/dL [facility] 05/14/2024 2:44 PM EST 05/14/2024 2:44 PM EST us Generic External Data Provider LAB BLOOD ORDERAB LES Final Result [facility] [address] [place] [address] [phone] * Urinalysis Complete (05/14/2024 2:41 PM EST) Color Urine Yellow [facility] Appearance Urine Clear [facility] PH 7.5 5.0 - 9.0 [facility] Glucose Urine UA Negative Negative mg/dL [facility] Urine Blood Negative Negative [facility] Specific [place] - Urine 1.020 1.005 - 1.025 [facility] Urine Protein Negative Neg-Trace mg/dL [facility] Urine Ketones Negative Negative mg/dL [facility] Nitrite Urine Negative Negative [facility] Leukocyte Esterase Urine Negative Negative [facility] RBC Urine 0-2 0 - 2 /HPF [facility] Urine WBC 0-5 0 - 5 /HPF [facility] Urine Squamous Epithelial Cell 0-2 0 - 2 /HPF [facility] Urine Bacteria None Seen None Seen [facility] Hyaline Casts, Urine 0-2 0 - 2 /LPF [facility] 05/14/2024 2:41 PM EST 05/14/2024 3:24 PM EST us Generic External Data Provider LAB URINE ORDERAB LES Final Result [facility] [address] [place] [address] [phone] * MR Cervical Spine w/o Contrast (05/05/2024 6:13 PM EST) Anatomical Region Laterality Modality Spine, C-spine Magnetic Resonan ce 05/05/2024 6:13 PM EST Narrative 05/06/2024 7:23 AM EST ? [facility] ?[address] ?[place] [address] ? Magnetic Resonance Report ? Signed ? Patient: Rose Mao ?MR#: [id number] ?? [id number] ? : 1975 ?Acct:[id number] ? Age/Sex: 49 / F ?ADM Date: 05/05/24 ? Loc: HO.MRI ? Attending Dr: Stephany Casanova DO ? Ordering Physician: Stephany Casanova DO ?? Date of Service: 05/05/24 ?? Procedure(s): MR cervical spine wo con ?? Accession Number(s): [id number] ? cc: Stephany Casanova DO ? EXAMINATION: ?? MR CERVICAL SPINE WITHOUT CONTRAST ? CLINICAL INFORMATION: ?? Cervical radiculopathy. 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 weakness and [...] DD/ 1813 ? TD/TT: 05/05/24 1835 ? Inspector Bicycle: ? Procedure Note Donevinter, Image - 05/06/[address] [address] Magnetic Resonance Report Signed Patient: Rose MaoMR#: [id number] : 1975Acct:[id number] Age/Sex: 49 / FADM Date: 05/05/24 Loc: HO.MRI Attending Dr: Stephany Casanova DO Ordering Physician: Stephany Casanova DO Date of Service: 05/05/24 Procedure(s): MR cervical spine wo con Accession Number(s): [id number] cc: Stephany Casanova DO EXAMINATION: MR CERVICAL SPINE WITHOUT CONTRAST CLINICAL INFORMATION: Cervical radiculopathy. 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 [...] 05/06/24 0719 DD/ 1813 TD/TT: 05/05/24 1835 Inspector Bicycle: us Stephany Casanova DO IMG MRI PROCEDURES Final Res ult * BI Mammogram Screening Tomosynthesis Bilateral (11/26/2023 10:15 AM EDT) Anatomical Region Laterality Modality Breast Bilateral Mammography 11/26/2023 10:1 5 AM EDT Narrative 12/17/2023 1:33 PM EDT ? [facility] [place] ? [address] ?[place] [address] ? Mammography Report ? Signed ? Patient: Mayco,Rose ?MR#: [id number] ?? [id number] ? : 1975 ?Acct:[id number] ? Age/Sex: 48 / F ?ADM Date: 09/03/24 ? Loc: HO.MAMMO ? Attending Dr: Stephany Casanova DO ? Ordering Physician: Stephany Casanova DO ?Results: 2B ?? enign Findings ? Date of Service: 11/26/23 ?Follow Up: 1 Year From Orig ?? inal Mammogram ? Procedure(s): MM tomosynthesis screening BI ?? Accession Number(s): [id number] ? cc: Stephany Casanova DO ? EXAMINATION: [...] DD/ 1015 ? TD/TT: 11/26/23 1040 ? Inspector Bicycle: ? Procedure Note Mesfin, Ju - 12/17/2023 [facility] [address] [place] [address] Mammography Report Signed Patient: Rose MaoMR#: [id number] : 1975Acct:[id number] Age/Sex: 48 / FADM Date: 11/26/23 Loc: HO.MAMMO Attending Dr: Stephany Casanova DO Ordering Physician: Stephany Casanovaults: 2B enign Findings Date of Service: 11/26/23Follow Up: 1 Year From Orig ina Mammogram Procedure(s): MM tomosynthesis screening BI Accession Number(s): [id number] cc: Stephany Casanova DO EXAMINATION: MM SCREENING [...] 12/17/23 1330 DD/ 1015 TD/TT: 11/26/23 1040 Inspector Bicycle: Stephany Casanova DO IMG BI PROCEDURES Final Resu lt * Hepatitis C Antibody with Reflex to HCV, RNA, Quantitative, Real-Time PCR (09/23/2023 12:12 PM EDT) Hepatitis C Antibody Nonreactive Nonreactive [facility] Comment:Antibodies to HCV no t detected; does not exclude early acuteHCV infection. Blood Venous blood specimen / Unknown 09/23/2023 12:12 PM EDT 09/23/2023 1:13 PM EDT Stephany Casanova DO LAB BLOOD ORDERABLES Final R esult [facility] [address] [place] [phone] * HIV-1/2 Antigen and Antibodies, Fourth Generation, with Reflexes (09/23/2023 12:12 PM EDT) HIV AB/AG Nonreactive Nonreactive [facility] Comment:HIV-1 p24 Ag and/or HIV-1/HIV-2 Ab not detected.A test result that is nonreactive does not exclude thepossibility of exposure to or infection with HIV-1 and/orHIV-2. Nonreactive results in this assay for individualswith prior exposure to HIV-1 and/or HIV-2 may be due toantigen and antibody levels that are below the limit ofdetection of this assay.The [employer] HIV Ag/Ab Combo assay result andsupplemental assay results should be interpreted inconjunction with the patient's clinical presentation,history and other laboratory results. If the results areinconsistent with clinical evidence, additional testing issuggested to confirm the result. Blood Venous blood specimen / Unknown 09/23/2023 12:12 PM EDT 09/23/2023 1:13 PM EDT Stephany Casanova DO LAB BLOOD ORDERABLES Final R esult Performing Organization Address City/[facility]/ZIP Co de Phone Number [facility] [address] [place] [phone] * (ABNORMAL) Lipid Panel, Standard (09/23/2023 12:12 PM EDT) Triglycerides 191(H) <150 mg/dL [facility] Comment:Desirable Triglyceri de: less than 150 mg/dLBorderline High Triglyceride 150-199 mg/dLHigh Triglyceride: 200-499 mg/dLVery High Triglyceride: greater than or equal to 5OO mg/dL Cholesterol 249(H) <200 mg/dL [facility] Comment:Desirable Cholestero l: less than 200 mg/dLBorderline High Cholesterol: 200-239 mg/dLHigh Cholesterol: greater than 239 mg/dL LDL Cholesterol Calculated 139(H) <100 mg/dL [facility] Comment:Desirable LDL: less than 100 mg/dLNear Optimal/Above Optimal LDL: 110- 129 mg/dLBorderline High LDL: 130-159 mg/dLHigh LDL: 160-189 mg/dLVery High LDL: greater than or equal to 190 mg/dL HDL Cholesterol 72 >40 mg/dL [facility] Comment:Desirable HDL: great er than 40 mg/dL Note: This HDL assay may give artificially low results in patients with liver disease. Blood Venous blood specimen / Unknown 09/23/2023 12:12 PM EDT 09/23/2023 1:16 PM EDT us Stephany Casanova DO LAB BLOOD ORDERABLES Final R esult [facility] [address] [place] [address] [phone] from Last 3 Months or Most Recently Relevant to Health Maintenance Insurance [facility] C3 Care Teams Laundry Worker Relationship Specialty Start Date End Date Stephany Casanova DO [address] [place] [phone] PCP - General Family Medicine 09/23/23
--- OUTSIDE RECORDS SUMMARY | 2024-06-03 16:53 | XMS_ITS | Continuity of Care Document ---
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 [address] [place], [address]. tel:[phone] [place] [address], [address], [id number] tel:[phone] [facility] No Information 4 Zaira Levine. [address] [place], [address]. tel:[phone] [place] [address], [address], [id number] tel:[phone] [facility] Severe episode of recurrent major depressive disorder, without psychotic features 4 Rush Aragon. [address] [place], [address]. tel:[phone] [place] [address], [address], [id number] tel:[phone] [facility] Severe episode of recurrent major depressive disorder, without psychotic features 4 Rush Aragon. [address] [place], [address]. tel:[phone] [facility], [address] [place], [id number] tel:[phone] [facility] No Information 3 Zaira Levine. [address] [place], [address]. tel:[phone] OFFICE/OUTPA TIENT VISIT [facility], [address] [place], [place], [id number] tel:[phone] [facility] Nursing Comments (chief complaint) follow up (chief complaint) Body mass index [BMI] 27.0-27.9, adultEssential hypertensionRash and nonspecific skin eruption 3 Zaira Levine. [address] [place], [address]. tel:[phone] Office/outpa tient visit,est, [facility], [address], [id number] tel:[phone] [facility] routine exam (chief complaint) PrediabetesPartia l retinal vein occlusion of left eye 3 Sherif Keller. [address] [place] [address], [id number]. tel:[phone] [place] [address], [address] [place], [id number] tel:[phone] [facility] Severe episode of recurrent major depressive disorder, without psychotic features 3 Rush Aragon. [address] [place], [address]. tel:[phone] OFFICE/OUTPA TIENT VISIT [facility], [address] [place], [place], [id number] tel:[phone] [facility] Nursing Comments (chief complaint) office visit (chief complaint) Essential hypertensionPredi abetesRash and nonspecific skin eruption 3 Zaira Levine. [address] [place], [address]. tel:[phone] [place] [address], [address] [place], [id number] tel:[phone] [facility] Severe episode of recurrent major depressive disorder, without psychotic features 3 Beverly Margo. [address] [place], [address]. tel:[phone] [place] [address], [address] [place], [id number] tel:[phone] [facility] Severe episode of recurrent major depressive disorder, without psychotic features 3 Beverly Margo. [address] [place], [address]. tel:[phone] [place] [address], [address] [place], [id number] tel:[phone] [facility] Severe episode of recurrent major depressive disorder, without psychotic features 3 Beverly Margo. [address] [place], [address]. tel:[phone] [facility] OFFICE/OUTPA TIENT VISIT EST [facility], [address], [id number] tel:[phone] [facility] routine exam (chief complaint) Partial retinal vein occlusion of left eye 3 Sherif Keller. [address] [place] [address], [id number]. tel:[phone] [place] [address], [address] [place], [id number] tel:[phone] [facility] Severe episode of recurrent major depressive disorder, without psychotic features 3 Beverly Margo. [address] [place], [address]. tel:[phone] [place] [address], [address] [place], [id number] tel:[phone] [facility] Branch retinal vein occlusion of left eye, unspecified complication status Jun- 3 Zaira Levine. [address] [place], [address]. tel:[phone] Office/outpa tient visit,[facility], [facility], [address] [place], [id number] tel:[phone] [facility] routine exam (chief complaint) Partial retinal vein occlusion of left eyeMyopia, bilateral Apr- 3 Sherif Keller. [address] [place] [address], [id number]. tel:[phone] [place] [address], [address], [id number] tel:[phone] [facility] Severe episode of recurrent major depressive disorder, without psychotic features Jun-0 3 No Information Office/outpa tient visit,est, [facility], [address] [place], [id number] tel:[phone] [facility] Nursing Comments (chief complaint) .new pt (chief complaint) Encounter for screening, unspecifiedBody mass index (BMI) 29.0-29.9, adultEssential hypertensionSeizu re disorderMigraineM oderate major depressionChronic bilateral low back pain with bilateral sciaticaLumbago with sciatica, right sideOther chronic pain Jun-0 3 Zaira Levine. [address] [place], [address]. tel:[phone] As per patient privacy policy some of [...] Father Problem (finding) Alcoholism Brother Problem (finding) Hypertension Brother Problem (finding) Migraines Father Problem (finding) Diabetes mellitus Father Problem (finding) Depression Maternal grandmother Problem (finding) Stroke Brother Problem (finding) High cholesterol Father Problem (finding) Mental illness Father Problem (finding) Obesity Maternal grandfather Problem (finding) Stroke Maternal grandmother Problem (finding) Cardiovascular disease Mother Problem (finding) Migraines Maternal grandfather Problem (finding) Cardiovascular disease Brother Problem (finding) Mental illness Maternal grandfather Problem (finding) High cholestero l Paternal grandmother Problem (finding) Depression Mother Problem (finding) Hypertension Mother Problem (finding) Cancer, unknown Brother Problem (finding) Diabetes mellitus Paternal grandmother Problem (finding) Obesity Mother Problem (finding) Cardiovascular disease Maternal grandmother Problem (finding) Hypertension Maternal grandfather Problem (finding) Hypertension Paternal grandmother Problem (finding) Mental illness Payers Payer name Insurance type Covered alliance party ID Authoriza tion(s) No Information Social [...] she recently moved to the area from [place] after a divorce. She has had migraines since she was a child. the headaches are worse when she is too hot. Her father was a soldier in [place] and was exposed to Agent [place]. she has always wondered if that has [...] worse but she would like to see [facility] and try therapyback pain is chronic [...] left eye Impression/Plan Related to Predi abetes Dietary management e ducation, guidance, and counseling [...]
--- OUTSIDE RECORDS SUMMARY | 2024-06-03 16:53 | XMS_ITS | Encounter Summary ---
Author Organization [employer] Address [address] [place] [address] Care Team Providers Care Director Of Strategic Partnerships Name Role Phone Stephany Casanova Primary Care [...] Kidney Disea se: Estimated GFR < 60 mL/min/1.97q3Rxccrz Kidney Disease: Estimated GFR < 15 mL/min/1.73m2 Glucose 81 60 - 115 mg/dL [facility] Calcium 9.4 8.4 - 10.2 mg/dL [facility] 05/14/2024 2:44 PM EST 05/14/2024 2:44 PM EST us Generic External Data Provider LAB BLOOD ORDERAB LES Final Result [facility] [address] [place] [phone] * Urinalysis Complete (05/14/2024 2:41 PM EST) Color Urine Yellow [facility] Appearance Urine Clear [facility] PH 7.5 5.0 - 9.0 [facility] Glucose Urine UA Negative Negative mg/dL [facility] Urine Blood Negative Negative [facility] Specific Olga - Urine 1.020 1.005 - 1.025 [facility] [...] Epithelial Cell 0-2 0 - 2 /HPF [facility] Urine Bacteria None Seen None Seen [facility] Hyaline Casts, Urine 0-2 0 - 2 /LPF [facility] 05/14/2024 2:41 PM EST 05/14/2024 3:24 PM EST us Generic External Data Provider LAB URINE ORDERAB LES Final Result [facility] [address] [place] [phone] [phone] documented in this encounter Visit Diagnoses Not on filedocumented in this encounter Additional Health Concerns Assessment Noted Time PHQ-9 Depression Total Score: 15 03/10/2 024 1:37 PM EST documented as of this encounter Care Teams Director Of Strategic Partnerships Relationship Specialty Start Date End Date Stephany Casanova DO [address] [place] [address] PCP - General Family Medicine 09/23/23 documented as of this encounter
--- OUTSIDE RECORDS SUMMARY | 2024-06-03 16:53 | XMS_ITS | Encounter Summary ---
Author Organization [employer] Address [address] [place] [address] Care Team Providers Care Senior Office Assistant Name Role Phone Stephany Casanova DO Primary Care Provider Reason for Visit * Reason Comments Care Coordination Outreach Encounter Details Date Type Department Care Team (Latest Contact Info) Description 05/26/2024 Patient Outreach [facility] MED & PEDS [address] [place] [address] Stephany Casanova DO [address] [place], [place] [phone] Care Coordination (Outreach) Social History Tobacco Use [...] to offer services. CHW introducing herself from [facility] CM Department with CHW's name, department and direct contact [phone] requesting call back. Will re-attempt to contact within 5 days. and address not confirmed. documented in this encounter Plan of Treatment Not on file documented as of this encounter Visit Diagnoses Not on filedocumented in this encounter Additional Health Concerns Assessment Noted Time PHQ-9 Depression Total Score: 15 024 1:37 PM EST documented as of this encounter Care Teams Senior Office Assistant Relationship Specialty Start Date End Date Stephany Casanova DO [address] [place] [address] PCP - General Family Medicine 09/23/23 documented as of this encounter
--- OUTSIDE RECORDS SUMMARY | 2024-06-03 16:53 | XMS_ITS | Encounter Summary ---
Author Organization [employer] Address [address] [place] [address] Care Team Providers Care Aluminum Pool Installer Name Role Phone Stephany Casanova DO Primary Care Provider Reason for Visit * Reason Comments Care Coordination Outreach Encounter Details Date Type Department Care Team (Latest Contact Info) Description 06/02/2024 Patient Outreach [facility] MED & PEDS [address] [place] [address] Stephany Casanova DO [address] [place], [place] [phone] Care Coordination (Outreach) Social History Tobacco Use [...] documented as of this encounter Care Teams Aluminum Pool Installer Relationship Specialty Start Date End Date Stephany Casanova DO [address] [place] [address] PCP - General Family Medicine 09/23/23 documented as of this encounter
--- OUTSIDE RECORDS SUMMARY | 2024-06-03 16:53 | XMS_ITS | Encounter Summary ---
Author Organization [employer] Address [address] [place] [address] Care Team Providers Care Business Information Manager Name Role Phone Stephany Casanova DO Primary Care Provider [phone] Reason for Visit * Reason Onset Date Comments Results 05/08/2024 Encounter Details Date Type Department Care Team ([facility] Contact Info) Description 05/08/2024 Telephone [facility] MEDICINE [address] [place], [place] [phone] Stephany Casanova DO [address] [place], [place] [phone] Results Social History Tobacco Use Types Packs/Day [...] 4:37 PM EST TC placed to patient [phone] in regards to below message. Patient reports she has a neurosurgeon (Dr. Elias Mckeon) who she saw for her workers comp in the past (2016) and had a lumbar fusion with him. Patient is unsure if she can see this provider for a non workers comp concern. [facility] Patient advised she will receive a letter [...] [facility] TC placed to patient [phone] to inform of above message. Patient did [...] documented as of this encounter Care Teams Business Information Manager Relationship Specialty Start Date End Date Stephany Casanova DO [address] [place] [address] PCP - General Family Medicine 09/23/23 documented as of this encounter
[2024-06-04 05:42] LABS: CT PCR NOT DETECTED (Not Detect.); NG PCR NOT DETECTED (Not Detect.)
[2024-06-04 09:12] LABS: Bacterial Vaginosis PCR NEGATIVE (Negative); Candida Group PCR DETECTED (Not Detect); Candida glab krusei PCR DETECTED (Not Detect); Trichomonas vaginalis PCR NOT DETECTED (Not Detect)
== END 2024-06-03 13:37 | disposition home or self-care (01) ==
LOC: HO.LAB 13:36
PROVIDERS: PCP Family Medicine; Visit Provider Advanced Practice Midwife
DX: N90.7 Vulvar cyst (principal); N89.8 Other specified noninflammatory disorders of vagina
CPT/HCPCS: 81515; 87491; 87591; 99212

== ENCOUNTER 2024-06-03 13:36 | Outpatient (AMB) | payer MEDICAID, SELFPAY ==
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
[2024-06-03 13:46] VITALS: BP 138/74; BMI 30.5
--- OUTSIDE RECORDS SUMMARY | 2024-06-03 16:02 | XMS_ITS | Encounter Summary ---
Author Organization [employer] Address [address] [place] [address] Care Team Providers Care Gastroenterology Nurse Practitioner Name Role Phone Stephany Casanova DO Primary Care Provider Reason for Visit * Reason Onset Date Comments Results 05/08/2024 Encounter Details Date Type Department Care Team ([facility] Contact Info) Description 05/08/2024 Telephone [facility] MED[facility]INE [address] [place], [place] [phone] Stephany Casanova DO [address] [place], [place] [phone] Results Social History Tobacco Use Types Packs/Day [...] 4:37 PM EST TC placed to patient [phone] in regards to below message. Patient reports she has a neurosurgeon (Dr. Elias Mckeon) who she saw for her workers comp in the past (2016) and had a lumbar fusion with him. Patient is unsure if she can see this provider for a non workers comp concern. Patient [facility] Patient advised she will receive a letter in the mail or a call from the office with appointment date and time and advised to not miss the appointment. Patient verbalized understanding. Patient to f/u PRN. * Telephone Encounter - Juliane aMrtin RN - 05/08/2024 11:41 AM EST RN reviewed MRI lumbar spine results with PCP. PCP would like to refer patient to [facility] d/t multilevelcervical spondylosis and R neuroforamina stenosis. [facility] TC placed to patient [phone] to inform of above message. Patient did [...] documented as of this encounter Care Teams Gastroenterology Nurse Practitioner Relationship Specialty Start Date End Date Stephany Casanova DO [address] [place] [address] PCP - General Family Medicine 09/23/23 documented as of this encounter
--- OUTSIDE RECORDS SUMMARY | 2024-06-03 16:02 | XMS_ITS | Encounter Summary ---
Author Organization [employer] Address [address] [place] [address] Care Team Providers Care Turf Manager Name Role Phone Stephany Casanova DO Primary Care Provider Reason for Visit * Reason Comments Care Coordination Outreach Encounter Details Date Type Department Care Team (Latest Contact Info) Description 05/26/2024 Patient Outreach [facility] PEDS [address] [place] [address] Stephany Casanova DO [address] [place], [place] [phone] Care Coordination (Outreach) Social History Tobacco Use Types Packs/Day Years [...] AM EDT documented as of this encounter Progress Notes * Sherry Wright - 05/26/2024 11:50 AM EST CHW Sherry Wright , placed outbound call to patient in regards to offer services. CHW introducing herself from [facility] CM Department with CHW's name, department and direct contact [phone] requesting call back. Will re-attempt to contact within 5 days. and address not confirmed. documented in this encounter Plan of Treatment Not on file documented as of this encounter Visit Diagnoses Not on filedocumented in this encounter Additional Health Concerns Assessment Noted Time PHQ-9 Depression Total Score: 15 024 1:37 PM EST documented as of this encounter Care Teams Turf Manager Relationship Specialty Start Date End Date Stephany Casanova DO [address] [place] [phone] PCP - General Family Medicine 09/23/23 documented as of this encounter
--- OUTSIDE RECORDS SUMMARY | 2024-06-03 16:02 | XMS_ITS | Encounter Summary ---
Author Organization [employer] Address [address] [place] [address] Care Team Providers Care Floral Merchandiser Name Role Phone Stephany Casanova Primary Care Provider [phone] Reason for Visit * Reason Comments Med Refill Encounter Details Date Type Department Care Team ([facility] st Contact Info) Description 04/02/2024 Refill [facility] [address] [place], [place] [phone] Gauri Lee MD [address] [place], [place] [phone] Social History Tobacco Use Types Packs/Day Years [...] documented as of this encounter Care Teams Floral Merchandiser Relationship Specialty Start Date End Date Stephany Casanova DO [address] [place] [id number] PCP - General Family Medicine 09/23/23 documented as of this encounter
--- OUTSIDE RECORDS SUMMARY | 2024-06-03 16:02 | XMS_ITS | Encounter Summary ---
Author Organization [employer] Address [address] [place] [address] Care Team Providers Care Nursing Clerk Name Role Phone Stephany Casanova Primary Care [...] EST) Sodium 146(H) 135 - 145 mmol/L [facility] Potassium 3.9 3.3 - 5.1 mmol/L [facility] Chloride 109(H) 96 - 108 mmol/L [facility] Carbon Dioxide 28 22 - 29 mmol/L [facility] Anion Gap 13 12 - 20 [facility] Urea Nitrogen (BUN) 18(H) 9 - 16 mg/dL [facility] Creatinine, Serum 0.92 0.5 - 1.4 mg/dL [facility] Estimated Glomerular Filt Rate >60 [facility] Comment:Chronic Kidney Disea se: Estimated GFR < 60 mL/min/[id number] Kidney Disease: Estimated GFR < 15 mL/min/1.73m2 Glucose 81 60 - 115 mg/dL [facility] Calcium 9.4 8.4 - 10.2 mg/dL [facility] 05/14/2024 2:44 PM EST 05/14/2024 2:44 PM EST us Generic External Data Provider LAB BLOOD ORDERAB LES Final Result [facility] [address] [place] [phone] * Urinalysis Complete (05/14/2024 2:41 PM EST) Color Urine Yellow [facility] Appearance Urine Clear [facility] PH 7.5 5.0 - 9.0 [facility] Glucose Urine UA Negative Negative mg/dL [facility] Urine Blood Negative Negative [facility] Specific [place] - Urine 1.020 1.005 - 1.025 [facility] Urine Protein Negative Neg-Trace mg/dL [facility] Urine Ketones Negative Negative mg/dL [facility] Nitrite Urine Negative Negative [facility] Leukocyte Esterase Urine Negative Negative [facility] RBC Urine 0-2 0 - 2 /HPF [facility] Urine WBC 0-5 0 - 5 /HPF [facility] Urine Squamous Epithelial Cell 0-2 0 - 2 /HPF [facility] Urine Bacteria None Seen None Seen [facility] Hyaline Casts, Urine 0-2 0 - 2 /LPF [facility] 05/14/2024 2:41 PM EST 05/14/2024 3:24 PM EST us Generic External Data Provider LAB URINE ORDERAB LES Final Result [facility] [address] [place] [address] [phone] documented in this encounter Visit Diagnoses Not on filedocumented in this encounter Additional Health Concerns Assessment Noted Time PHQ-9 Depression Total Score: 15 03/10/2 024 1:37 PM EST documented as of this encounter Care Teams Nursing Clerk Relationship Specialty Start Date End Date Stephany Casanova DO [address] [place] [phone] PCP - General Family Medicine 09/23/23 documented as of this encounter
--- OUTSIDE RECORDS SUMMARY | 2024-06-03 16:02 | XMS_ITS | Encounter Summary ---
Author Organization [employer] Address [address] [place] [address] Care Team Providers Care Air Defense Control Officer Name Role Phone Stephany Casanova DO Primary Care Provider Reason for Visit * Reason Comments Care Coordination Outreach Encounter Details Date Type Department Care Team (Latest Contact Info) Description 06/02/2024 Patient Outreach [facility]S [address] [place] [address] Stephany Casanova DO [address] [place], [place] [phone] Care Coordination (Outreach) Social History Tobacco Use [...] encounter Progress Notes * Sherry Wright - 06/02/2024 12:43 PM EDT CHW Sherry Wright called patient to introduce Adult Complex Care Program. Patient's name, and Address was confirmed. Program information was provided to the patient. Patient declined to participate in program. Provided patient with direct contact information for future reference. documented in this encounter Plan of Treatment Not on file documented as of this encounter Visit Diagnoses Not on filedocumented in this encounter Additional Health Concerns Assessment Noted Time PHQ-9 Depression Total Score: 15 024 1:37 PM EST documented as of this encounter Care Teams Air Defense Control Officer Relationship Specialty Start Date End Date Stephany Casanova DO [address] [place] [phone] PCP - General Family Medicine 09/23/23 documented as of this encounter
--- OUTSIDE RECORDS SUMMARY | 2024-06-03 16:02 | XMS_ITS | Continuity of Care Document ---
Author Organization [facility] Address [address] [place] [phone] Phone Care Team Providers Care Television Installer Helper Name Role Phone Beverly REESEMargo Unavailable Unavailable [...] 1 TABLET BY MOUTH DAILY - Active triamcinolone acetonide 0.025 % topical cream apply by topical route 2 times every day a thin layer to the affected area(s) 0.00 - Active sumatriptan 100 mg tablet take 1 tablet by oral route after onset of migraine; may repeat after 2 hours if headache returns,not to exceed 200mg in 24hrs 100 MG - Active cyclobenzaprine 10 mg tablet take 1 tablet by oral route every day 10 MG - Active gabapentin 600 mg tablet take 1 tablet b y oral route 3 times every day 600 MG - Active Procedures Procedure Date OFFICE/OUTPATIENT VISIT EST Fundus photography Office/outpatient visit,est, mod 2022 Dilated Retinal Exam w/inter and review w/out Retinopathy OFFICE/OUTPATIENT VISIT EST Glycosylated hemoglobin assay Metabolic panel, comprehensive OFFICE/OUTPATIENT VISIT EST Fundus photography Dilated Retinal Exam w/inter and review w/out Retinopathy Trans; annealing torch operator Fundus photography Determination of refractive state Office/outpatient [...] Diagnoses Date Provider Providers Copied on Encounter [facility], [address] [place], [place], [id number] tel:[phone] [facility] No Information 4 Rush Aragon. [address] [place], [address]. tel:[phone] [place] [address], [address], [place], [id number] tel:[phone] [facility] No Information 4 Zaira Levine. [address] [place], [address]. tel:[phone] [place] [address], [address], [id number] tel:[phone] [facility] Severe episode of recurrent major depressive disorder, without psychotic features 4 Rush Aragon. [address] [place], [address]. tel:[phone] [place] [address], [address], [id number] tel:[phone] [facility] Severe episode of recurrent major depressive disorder, without psychotic features 4 Rush Aragon. [address] [place], [address]. tel:[phone] [facility], [address] [place], [id number] tel:[phone] [facility] No Information 3 Zaira Levine. [address] [place], [address]. tel:[phone] OFFICE/OUTPA TIENT VISIT [facility], [address] [place], [place], [id number] tel:[phone] [facility] Nursing Comments (chief complaint) follow up (chief complaint) Body mass index [BMI] 27.0-27.9, adultEssential hypertensionRash and nonspecific skin eruption 3 Zaira Levine. [address] [place], [address]. tel:[phone] Office/outpa tient visit,est, [facility], [address], [place], [id number] tel:[phone] [facility] routine exam (chief complaint) PrediabetesPartia l retinal vein occlusion of left eye 3 Sherif Keller. [address] [place] [address], [id number]. tel:[phone] [place] [address], [address] [place], [id number] tel:[phone] [facility] Severe episode of recurrent major depressive disorder, without psychotic features 3 Rush Aragon. [address] [place], [address]. tel:[phone] OFFICE/OUTPA TIENT VISIT [facility], [address] [place], [place], [id number] tel:[phone] [facility] Nursing Comments (chief complaint) office visit (chief complaint) Essential hypertensionPredi abetesRash and nonspecific skin eruption 3 Zaira Levine. [address] [place], [address]. tel:[phone] [place] [address], [address] [place], [id number] tel:[phone] [facility] Severe episode of recurrent major depressive disorder, without psychotic features 3 Beverly Margo. [address] [place], [address]. tel:[phone] [place] [address], [address] [place], [id number] tel:[phone] [facility] Severe episode of recurrent major depressive disorder, without psychotic features 3 Beverly Margo. [address] [place], [address]. tel:[phone] [place] [address], [address] [place], [id number] tel:[phone] [facility] Severe episode of recurrent major depressive disorder, without psychotic features 3 Beverly Margo. [address] [place], [address]. tel:[phone] [facility] OFFICE/OUTPA TIENT VISIT EST [facility], [address] [place], [id number] tel:[phone] [facility] routine exam (chief complaint) Partial retinal vein occlusion of left eye 3 Sherif Keller. [address] [place] [address], [id number]. tel:[phone] [place] [address], [address] [place], [id number] tel:[phone] [facility] Severe episode of recurrent major depressive disorder, without psychotic features 3 Beverly Margo. [address] [place], [address]. tel:[phone] [place] [address], [address] [place], [id number] tel:[phone] [facility] Branch retinal vein occlusion of left eye, unspecified complication status Jun- 3 Zaira Levine. [address] [place], [address]. tel:[phone] Office/outpa tient visit,[facility] [place], [facility], [address] [place], [id number] tel:[phone] [facility] routine exam (chief complaint) Partial retinal vein occlusion of left eyeMyopia, bilateral Apr- 3 Sherif Keller. [address] [place] [address], [id number]. tel:[phone] [place] [address], [address], [id number] tel:[phone] [facility] Severe episode of recurrent major depressive disorder, without psychotic features Apr-0 3 No Information Office/outpa tient visit,est, [facility], [address] [place], [id number] tel:[phone] [facility] Nursing Comments (chief complaint) .new pt (chief complaint) Encounter for screening, unspecifiedBody mass index (BMI) 29.0-29.9, adultEssential hypertensionSeizu re disorderMigraineM oderate major depressionChronic bilateral low back pain with bilateral sciaticaLumbago with sciatica, right sideOther chronic pain Jun-0 3 Zaira Levine. [address] [place], [address]. tel:[phone] As per patient privacy policy some of the clinical information may not be visible. Family History Family Member Type Diagnosis Age At Onset Brother Problem (finding) Obesity Paternal grandmother Problem (finding) High cholestero l Maternal grandmother Problem (finding) High cholestero l Mother Problem (finding) High cholesterol Father Problem (finding) High cholesterol Paternal grandmother Problem (finding) Diabetes mellit us Father Problem (finding) Alcoholism Brother Problem (finding) Migraines Father Problem (finding) Diabetes mellitus Maternal grandmother Problem (finding) Stroke Maternal grandfather Problem (finding) Stroke Maternal grandmother Problem (finding) Cardiovascular disease Brother Problem (finding) Mental illness Mother Problem (finding) Hypertension Paternal grandmother Problem (finding) Mental illness Brother Problem (finding) Hypertension Father Problem (finding) Depression Brother Problem (finding) High cholesterol Father Problem (finding) Mental illness Mother Problem (finding) Migraines Maternal grandfather Problem (finding) Cardiovascular disease Maternal grandfather Problem (finding) High cholestero l Paternal grandmother Problem (finding) Depression Mother Problem (finding) Cancer, unknown Brother Problem (finding) Diabetes mellitus Mother Problem (finding) Cardiovascular disease Maternal grandmother Problem (finding) Hypertension Maternal grandfather Problem (finding) Hypertension Father Problem (finding) Obesity Paternal grandmother Problem (finding) Obesity Payers Payer name Insurance type Covered democrat ID Authoriza tion(s) No Information Social History [...] Date Complaint History Of Prese nt Illness follow up Pt is 47 year ol d female with history of HTN who is here for follow up of rash. she is taking Nifedipine and BP is under better control today.rash has resolved with Triamcinolone cream. Nursing Comments Patient present s for a follow up for rash of left leg, rash has now resolved. LOUISA RN routine exam The 47 year old patient presents for evaluation of routine exam.Reason for visit: dilated follow up Last eye exam: 08/2022Insurance: noneAny vision complaints? OS johnson floater still present and blurriness for distance Diabetic (yes or no +diagnosis date)? prediabetic If yes, last A1C: 5.7Are you ok with being dilated today? yesBy: Maria Alejandra Nursing Comments Patient present s with redness/rash to bilateral extremity. Right shoulder pain, sharp pain behind left knee. LOUISA RN office visit Pt is 47 year ol [...] she denies redness and swelling of BLE. routine exam The 47 year old patient [...] with being dilated today? yesBy: Maria Alejandra .new pt Pt is 47 year ol d female who is here to establish care. she recently moved to the area from [place] after a divorce. She has had migraines since she was a child. the headaches are worse when she is too hot. Her father was a soldier in [place] and was exposed to Agent [place]. she has always wondered if that has [...] worse but she would like to see [facility] [place] and try therapyback pain is chronic and located over her whole low back. radiates into bilat hips and into right thigh which is sometimes numb. she has more feeling in her left thigh and sometimes has sciatic pain in left thigh. Nursing Comments estab care HTN med refillspast PCP diagnosised with Kidney Ds, wants GFR checked migraines mammo 4 yrs agohysterectomy 2018 has 1 ovary PHQ 15 would eventually like to have therapy but wants to wait til her finances are better ML Functional Status Date Functional Assessmen t No Information Instructions Date Instruction Additional Infor bridget RTC x 6 months for yearly eye ex am. Related to Prediabetes Impression/Plan Related to Parti al retinal vein occlusion of left eye Dietary management e ducation, guidance, and counseling Related to Body mass index [BMI] 27.0-27.9, adult Giving encouragement to exercise Related to Body mass index [BMI] 27.0-27.9, adult Impression/Plan Related to Predi abetes RTC x 3-4 months for Dilated BRVO OS Follow Up. Related to Partial retinal vein occlusion of left eye Impression/Plan Related to Parti al retinal vein occlusion of left eye RTC x2 months for Dilated Follow Up. Related to Partial retinal vein occlusion of left eye Impression/Plan Related to Myopi a, bilateral Impression/Plan Related to Parti al retinal vein occlusion of left eye Dietary management e ducation, guidance, and counseling Related to Body mass index [BMI] 29.0-29.9, adult Giving encouragement to exercise Related to Body mass index [BMI] 29.0-29.9, adult Assessments Type Assessment Date No Information Patient Care Teams Name Effective Dates (start - stop) Status Members No Information
--- OUTSIDE RECORDS SUMMARY | 2024-06-03 16:02 | XMS_ITS | Continuity of Care Document ---
Author Organization [facility] Address [address] [place] [address] Phone Care Team Providers Care Buffing Wheel Former Automatic Name Role Phone Trung Verdugo MD Unavailable Unavailable Procedures Procedure Date Void Encounter Number Advance Directives Directive Yes / No Effective Date File Name No Information Encounters Encounter Description Practice Location Reason(s) For Visit Diagnoses Date Provider Providers Copied on Encounter [facility], [address] [place], [place], [id number], [place] tel:[phone] [facility] No Information Kartik Nino. [address] [place] [address], [facility], [place]. tel:[phone] Family History Family Member Type Diagnosis Age [...]
--- OUTSIDE RECORDS SUMMARY | 2024-06-03 16:02 | XMS_ITS | Patient Health Record ---
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 (M51.17) Active confirmed Problem [id number] Spinal stenosis of lumbosacral region (M48.07) Active confirmed Plan Of Treatment No Information Insurance Providers Payer Name Payer Address Payer Phone Subscriber Number Group Number Insured Name Patient Relationship to Insured Coverage Start Date Coverage End Date Ravi Velarde W/C c/o [employer] [address] [place] [address] [phone] [id number] Rose Mao Self - patient is the insured Medical (General) History Medical History History ICD Code Chronic anxiety & depression hypertension GERD prediabetic Surgical History Surgery Date(Month/Year) Tonsillectomy childhood Appendectomy 1987 Emergency 1995 Venous Ablations 2011 & 2012
--- OUTSIDE RECORDS SUMMARY | 2024-06-03 16:02 | XMS_ITS | Clinical Summary ---
Author Organization [employer] Address [address] [place] [address] Care Team Providers Care Surgeon/President Name Role Phone Stephany Casanova DO Primary [...] intervention , Patient to reach out to [facility] team as needed, and Patient to engage in OP therapy BMI 31.0-31.9,adult 08/22/2023 Mixed stress and urge urinary incontinence 08/21 Chronic migraine 08/22/2023 Hyperlipidemia 08/22/2023 Essential hypertension 01/03/2016 Encounters * This document contains information received from the source organization and may not represent a complete record from that organization. Date Type Department Care Team Description 06/02/2024 Patient Outreach [facility] [address] [place] [address] Stephany Casanova DO Care Coordination (Outreach) 05/26/2024 Patient Outreach [facility] [address] [place] [address] Stephany Casanova DO Care Coordination (Outreach) 05/14/2024 Orders Only GENERIC EXTERNAL DATA DEPARTMENT Provider, Generic External Data 05/08/2024 Telephone [facility] [address] [place] [address] Stephany Casanova DO Results 04/03/2024 Telephone [facility] [address] [place] [address] Stephany Casanova DO Med Refill 04/03/2024 Refill [facility] [address] [place] [address] Stephany Casanova DO 04/02/2024 Refill [facility] [address] [place] [address] Gauri Lee MD 03/31/2024 Telephone [facility] [address] [place] [address] Stephany Casanova DO Referral 03/25/2024 Refill [facility] [address] [place] [address] Stephany Casanova DO 03/10/2024 10:45 AM EST Office Visit [facility] [address] [place] [address] Stephany Casanova DO Essential hypertension (Primary Dx); [...] of 2) 2023 COVID-19 Vaccine (2 - 2023- season) 2023 12/22/2021 Depression Monitoring (PHQ-9) 09/08/2024 [...] EST) Sodium 146(H) 135 - 145 mmol/L [facility] Potassium 3.9 3.3 - 5.1 mmol/L [facility] Chloride 109(H) 96 - 108 mmol/L [facility] Carbon Dioxide 28 22 - 29 mmol/L [facility] Anion Gap 13 12 - 20 [facility] Urea Nitrogen (BUN) 18(H) 9 - 16 mg/dL [facility] Creatinine, Serum 0.92 0.5 - 1.4 mg/dL [facility] Estimated Glomerular Filt Rate >60 [facility] Comment:Chronic Kidney Disea se: Estimated GFR < 60 mL/min/1.33x6Idtsir Kidney Disease: Estimated GFR < 15 mL/min/1.73m2 Glucose 81 60 - 115 mg/dL [facility] Calcium 9.4 8.4 - 10.2 mg/dL [facility] 05/14/2024 2:44 PM EST 05/14/2024 2:44 PM EST us Generic External Data Provider LAB BLOOD ORDERAB LES Final Result [facility] [address] [place] [address] [phone] * Urinalysis Complete (05/14/2024 2:41 PM EST) Color Urine Yellow [facility] Appearance Urine Clear [facility] PH 7.5 5.0 - 9.0 [facility] Glucose Urine UA Negative Negative mg/dL [facility] Urine Blood Negative Negative [facility] Specific [place] - Urine 1.020 1.005 - 1.025 [facility] Urine Protein Negative Neg-Trace mg/dL [facility] Urine Ketones Negative Negative mg/dL [facility] Nitrite Urine Negative Negative [facility] Leukocyte Esterase Urine Negative Negative [facility] RBC Urine 0-2 0 - 2 /HPF [facility] Urine WBC 0-5 0 - 5 /HPF [facility] Urine Squamous Epithelial Cell 0-2 0 - 2 /HPF [facility] Urine Bacteria None Seen None Seen [facility] Hyaline Casts, Urine 0-2 0 - 2 /LPF [facility] 05/14/2024 2:41 PM EST 05/14/2024 3:24 PM EST us Generic External Data Provider LAB URINE ORDERAB LES Final Result [facility] [address] [place] [address] [phone] * MR Cervical Spine w/o Contrast (05/05/2024 6:13 PM EST) Anatomical Region Laterality Modality Spine, C-spine Magnetic Resonan ce 05/05/2024 6:13 PM EST Narrative 05/06/2024 7:23 AM EST ? [facility] ?[address] ?[place] [address] ? Magnetic Resonance Report ? Signed ? Patient: Rose Mao ?MR#: [id number] ?? [id number] ? : 1975 ?Acct:[id number] ? Age/Sex: 49 / F ?ADM Date: 05/05/24 ? Loc: HO.MRI ? Attending Dr: Stephany Casanova DO ? Ordering Physician: Stephany Casanova DO ?? Date of Service: 05/05/24 ?? Procedure(s): MR cervical spine wo con ?? Accession Number(s): [id number] ? cc: Stephany Casanova DO ? EXAMINATION: ?? MR CERVICAL SPINE WITHOUT CONTRAST ? CLINICAL INFORMATION: ?? Cervical radiculopathy. 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 TD/TT: 05/05/24 1835 ? Nurse Sitter: ? Procedure Note Donevinter, Image - 05/06/[address] [address] Magnetic Resonance Report Signed Patient: Rose MaoMR#: [id number] : 1975Acct:[id number] Age/Sex: 49 / FADM Date: 05/05/24 Loc: HO.MRI Attending Dr: Stephany Casanova DO Ordering Physician: Stephany Casanova DO Date of Service: 05/05/24 Procedure(s): MR cervical spine wo con Accession Number(s): [id number] cc: Stephany Casanova DO EXAMINATION: MR CERVICAL SPINE WITHOUT CONTRAST CLINICAL INFORMATION: Cervical radiculopathy. 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 [...] 05/06/24 0719 DD/ 1813 TD/TT: 05/05/24 1835 Nurse Sitter: us Stephany Casanova DO IMG MRI PROCEDURES Final Res ult * BI Mammogram Screening Tomosynthesis Bilateral (11/26/2023 10:15 AM EDT) Anatomical Region Laterality Modality Breast Bilateral Mammography 11/26/2023 10:1 5 AM EDT Narrative 12/17/2023 1:33 PM EDT ? [facility] ? [address] ?[place] [address] ? Mammography Report ? Signed ? Patient: Mayco,Rose ?MR#: [id number] ?? [id number] ? : 1975 ?Acct:[id number] ? Age/Sex: 48 / F ?ADM Date: 09/03/24 ? Loc: HO.MAMMO ? Attending Dr: Stephany Casanova DO ? Ordering Physician: Stephany Casanova DO ?Results: 2B ?? enign Findings ? Date of Service: 11/26/23 ?Follow Up: 1 Year From Orig ?? inal Mammogram ? Procedure(s): MM tomosynthesis screening BI ?? Accession Number(s): [id number] ? cc: Stephany Casanova DO ? EXAMINATION: [...] DD/ 1015 ? TD/TT: 11/26/23 1040 ? Nurse Sitter: ? Procedure Note Mesfin, Ju - 12/17/2023 [facility] [facility] [address] [place] [address] Mammography Report Signed Patient: Rose MaoMR#: [id number] : 1975Acct:[id number] Age/Sex: 48 / FADM Date: 11/26/23 Loc: HO.MAMMO Attending Dr: Stephany Casanova DO Ordering Physician: Stephany Casanovaults: 2B enign Findings Date of Service: 11/26/23Follow Up: 1 Year From Orig ina Mammogram Procedure(s): MM tomosynthesis screening BI Accession Number(s): [id number] cc: Stephany Casanova DO EXAMINATION: MM SCREENING [...] 12/17/23 1330 DD/ 1015 TD/TT: 11/26/23 1040 Nurse Sitter: Stephany Casanova DO IMG BI PROCEDURES Final Resu lt * Hepatitis C Antibody with Reflex to HCV, RNA, Quantitative, Real-Time PCR (09/23/2023 12:12 PM EDT) Hepatitis C Antibody Nonreactive Nonreactive [facility] Comment:Antibodies to HCV no t detected; does not exclude early acuteHCV infection. Blood Venous blood specimen / Unknown 09/23/2023 12:12 PM EDT 09/23/2023 1:13 PM EDT Stephany Casanova DO LAB BLOOD ORDERABLES Final R esult [facility] [address] [place] [phone] * HIV-1/2 Antigen and Antibodies, Fourth Generation, with Reflexes (09/23/2023 12:12 PM EDT) HIV AB/AG Nonreactive Nonreactive [facility] Comment:HIV-1 p24 Ag and/or HIV-1/HIV-2 Ab not detected.A test result that is nonreactive does not exclude thepossibility of exposure to or infection with HIV-1 and/orHIV-2. Nonreactive results in this assay for individualswith prior exposure to HIV-1 and/or HIV-2 may be due toantigen and antibody levels that are below the limit ofdetection of this assay.The [employer] HIV Ag/Ab Combo assay result andsupplemental assay results should be interpreted inconjunction with the patient's clinical presentation,history and other laboratory results. If the results areinconsistent with clinical evidence, additional testing issuggested to confirm the result. Blood Venous blood specimen / Unknown 09/23/2023 12:12 PM EDT 09/23/2023 1:13 PM EDT Stephany Casanova DO LAB BLOOD ORDERABLES Final R esult Performing Organization Address City/[facility]/ZIP Co de Phone Number [facility] [address] [place] [phone] [phone] * (ABNORMAL) Lipid Panel, Standard (09/23/2023 12:12 PM EDT) Triglycerides 191(H) <150 mg/dL [facility] Comment:Desirable Triglyceri de: less than 150 mg/dLBorderline High Triglyceride 150-199 mg/dLHigh Triglyceride: 200-499 mg/dLVery High Triglyceride: greater than or equal to 5OO mg/dL Cholesterol 249(H) <200 mg/dL [facility] Comment:Desirable Cholestero l: less than 200 mg/dLBorderline High Cholesterol: 200-239 mg/dLHigh Cholesterol: greater than 239 mg/dL LDL Cholesterol Calculated 139(H) <100 mg/dL [facility] Comment:Desirable LDL: less than 100 mg/dLNear Optimal/Above Optimal LDL: 110- 129 mg/dLBorderline High LDL: 130-159 mg/dLHigh LDL: 160-189 mg/dLVery High LDL: greater than or equal to 190 mg/dL HDL Cholesterol 72 >40 mg/dL [facility] Comment:Desirable HDL: great er than 40 mg/dL Note: This HDL assay may give artificially low results in patients with liver disease. Blood Venous blood specimen / Unknown 09/23/2023 12:12 PM EDT 09/23/2023 1:16 PM EDT us Stephany Casanova DO LAB BLOOD ORDERABLES Final R esult [facility] [address] [place] [address] [phone] from Last 3 Months or Most Recently Relevant to Health Maintenance Insurance [facility] C3 Care Teams Surgeon/President Relationship Specialty Start Date End Date Stephany Casanova DO [address] [place] [address] PCP - General Family Medicine 09/23/23
== END 2024-06-03 14:46 | disposition home or self-care (01) ==
LOC: HO.HWSM 13:36
PROVIDERS: PCP Family Medicine; Visit Provider Advanced Practice Midwife
DX: N90.7 Vulvar cyst (principal); Z11.3 Encounter for screening for infections with a predominantly sexual mode of transmission
CPT/HCPCS: 99203

== ENCOUNTER 2024-06-11 10:32 | Outpatient (AMB) | payer MEDICAID, SELFPAY ==
[2024-06-11 10:48] VITALS: BP 104/88; PULSE 75; O2SAT 99; BMI 31.2
--- NOTE | 2024-06-11 10:48 | HO.NEPHOV_ITS ---
Vital Signs 06/11/24 10:48 Height 5 ft 6.5 in Weight 196 lb BMI 31.2 BP 104/88 Blood Pressure Location Lt brachial Position Sitting Pulse 75 Pulse Source Pulse Oximeter Pulse Oximetry (%) 99 Oxygen Delivery Method Room Air Intake Visit Reasons: CKD/ LVM Director Of Product Marketing Required: No Accompanied by: Self / Same As Patient Allergies epinephrine Allergy (Unknown, Verified 06/11/24 10:50) Flushing tramadol Allergy (Unknown, Verified 06/11/24 10:50) Shortness of Breath Medication List - Last Reconciled 06/11/24 by Tyrell Briscoe MD ascorbic acid (vitamin C) ER 500 mg PO DAILY atorvastatin 40 mg PO DAILY cholecalciferol (vitamin D3) 50 mcg PO DAILY cyclobenzaprine 10 mg PO BEDTIME fluconazole 150 mg PO Q3D 2 doses gabapentin 600 mg PO BEDTIME nifedipine ER 30 mg PO DAILY sumatriptan succinate 100 mg PO ONCE PRN valsartan 80 mg PO DAILY HPI Comments Details: 48 y/o female with a medical hx of essential HTN, HLD, migraines, PTSD, obesity, chronic migraine, HLD, bladder prolapse (s/p sling for incontinence), hx of lumbar fusion, former smoker. referred by PCP for reported hx of stage 2 kidney disease. reports previously on lisinopril 2 or so years ago, then reduced renal function developed, so lisinopril was weaned off. reports also lost weight at that time so did not need additional blood pressure medication. Renal function then improved. she has since struggled with additional weight gain, was started on nifedipine 60mg daily which was recently increased to 90mg daily due to continued uncontrolled blood pressure. She reports nifedipine is the only blood pressure medication she has tried that has been effective. labs (scanned) microalbumin to creatinine ratio was 11.3 creatinine, serum 0.94 eGFR >60 A1c 5.4 has had high blood pressure since she was young- diagnosed age 18. mom hypertension, and both of her parents, also her brothers, one has passed reports brother from sleep apnea, passed suddenly in his sleep age 30 alcohol use is quite rare former smoker, quit when she was 17, then smoked from age [age]. reports chronic swelling in her legs since January of 2022 she swells when she eats salt so she avoids this, cooks and does not add salt she does note some chronic/mild dyspnea with exertion up stairs, worse when she put on more weight no NSAIDs frequent urination at night- 5x nightly, but can be more or less does try to drink a lot of water and cranberry juice (sugar-free), guesses 64 ounces daily chronic low back pain but no new issues with flank pain no dysuria, hematuria, or other urinary symptoms PFS Medical History (Updated 06/03/24 @ 14:34 by Elvira Dobbs CNM) History of tobacco use History of COVID-19 Female bladder prolapse Hyperlipemia Essential hypertension Mixed stress and urge urinary incontinence BMI 31.0-31.9,adult Posttraumatic stress disorder Surgical History History of tonsillectomy History of lumbar fusion History of hysterectomy H/O section History of bladder suspension procedure Hx of appendectomy Family History Mother HTN (hypertension) Father Diabetes mellitus Brother No problems noted. Female Reproductive History Menstrual Age of Menarche: 9 Physical Exam Vital Signs: Last Vital Signs Pulse 75 06/11/24 10:48 BP 104/88 06/11/24 10:48 Pulse Ox 99 06/11/24 10:48 Oxygen Delivery Method Room Air 06/11/24 10:48 BMI result Body Mass Index 31.2 Results Reviewed Nephrology Results: Sodium 146 mmol/L (135-145) H 05/14/24 Potassium 3.9 mmol/L (3.3-5.1) 05/14/24 Chloride 109 mmol/L (96-108) H 05/14/24 Carbon Dioxide 28 mmol/L (22-29) 05/14/24 BUN 18 mg/dL (9-16) H 05/14/24 Creatinine 0.92 mg/dL (0.5-1.4) 05/14/24 Calcium 9.4 mg/dL (8.4-10.2) 05/14/24 Urine Protein Negative mg/dL (Neg-Trace) 05/14/24 Assessment & Plan Assessment & Plan (1) Nocturia: Code(s): R35.1 - Nocturia Category: Medical Plan: Chronic, persistent May have component of CARLA that is contributory, though given pt has lost weight since remote sleep study this is less likely advised minimize fluids before bedtime (2) Hypertension: Code(s): I10 - Essential (primary) hypertension Category: Medical Qualifiers: Hypertension type: primary hypertension Qualified Code(s): I10 - Essential (primary) hypertension Plan: Med change as below continue regular exercise and healthy diet for weight loss, avoid added salt in diet (3) Bilateral lower extremity edema: Code(s): R60.0 - Localized edema Category: Medical Plan: Chronic, persistent Nifedipine is likely contributing- given pt reports this is the only blood pressure medicine that has worked well for her, we will continue to monitor she continues to avoid salt elevate legs, compression stockings she will call if swelling worsens Decreased Nifedipine to 30 mg QD ADDed Valsartan 80 mg daily EDema improved Mild hypernatremia due to free water deficit Increase PO water intake Repeat today Coding Level of Care Code Est Pt Level 4 (95243) Diagnoses Nocturia R35.1 Primary hypertension I10 Hypertension type: primary hypertension Bilateral lower extremity edema R60.0
--- OUTSIDE RECORDS SUMMARY | 2024-06-11 12:10 | XMS_ITS | Continuity of Care Document ---
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 [address] [place], [address]. tel:[phone] [place] [address], [address], [id number] tel:[phone] [facility] No Information 4 Zaira Levine. [address] [place], [address]. tel:[phone] [place] [address], [address] [place], [id number] tel:[phone] [facility] Severe episode of recurrent major depressive disorder, without psychotic features 4 Rush Aragon. [address] [place], [address]. tel:[phone] [place] [address], [address], [id number] tel:[phone] [facility] Severe episode of recurrent major depressive disorder, without psychotic features 4 Rush Aragon. [address] [place], [address]. tel:[phone] [facility], [address] [place], [id number] tel:[phone] [facility] No Information 3 Zaira Levine. [address] [place], [address]. tel:[phone] OFFICE/OUTPA TIENT VISIT [facility], [address] [place], [place], [id number] tel:[phone] [facility] Nursing Comments (chief complaint) follow up (chief complaint) Body mass index [BMI] 27.0-27.9, adultEssential hypertensionRash and nonspecific skin eruption 3 Zaira Levine. [address] [place], [address]. tel:[phone] Office/outpa tient visit,est, [facility], [address], [id number] tel:[phone] [facility] routine exam (chief complaint) PrediabetesPartia l retinal vein occlusion of left eye 3 Sherif Keller. [address] [place] [address], [id number]. tel:[phone] [place] [address], [address] [place], [id number] tel:[phone] [facility] Severe episode of recurrent major depressive disorder, without psychotic features 3 Rush Aragon. [address] [place], [address]. tel:[phone] OFFICE/OUTPA TIENT VISIT [facility], [address] [place], [place], [id number] tel:[phone] [facility] Nursing Comments (chief complaint) office visit (chief complaint) Essential hypertensionPredi abetesRash and nonspecific skin eruption 3 Zaira Levine. [address] [place], [address]. tel:[phone] [place] [address], [address] [place], [id number] tel:[phone] [facility] Severe episode of recurrent major depressive disorder, without psychotic features 3 Beverly Margo. [address] [place], [address]. tel:[phone] [place] [address], [address] [place], [id number] tel:[phone] [facility] Severe episode of recurrent major depressive disorder, without psychotic features 3 Beverly Margo. [address] [place], [address]. tel:[phone] [place] [address], [address] [place], [id number] tel:[phone] [facility] Severe episode of recurrent major depressive disorder, without psychotic features 3 Beverly Margo. [address] [place], [address]. tel:[phone] [facility] OFFICE/OUTPA TIENT VISIT EST [facility], [address] [place], [id number] tel:[phone] [facility] routine exam (chief complaint) Partial retinal vein occlusion of left eye 3 Sherif Keller. [address] [place] [address], [id number]. tel:[phone] [place] [address], [address] [place], [id number] tel:[phone] [facility] Severe episode of recurrent major depressive disorder, without psychotic features 3 Beverly Margo. [address] [place], [address]. tel:[phone] [place] [address], [address] [place], [id number] tel:[phone] [facility] Branch retinal vein occlusion of left eye, unspecified complication status Jun- 3 Zaira Levine. [address] [place], [address]. tel:[phone] Office/outpa tient visit,[facility], [facility], [address] [place], [id number] tel:[phone] [facility] routine exam (chief complaint) Partial retinal vein occlusion of left eyeMyopia, bilateral Apr- 3 Sherif Keller. [address] [place] [address], [id number]. tel:[phone] [place] [address], [address], [id number] tel:[phone] [facility] Severe episode of recurrent major depressive disorder, without psychotic features Jun-0 3 No Information Office/outpa tient visit,est, [facility], [address] [place], [id number] tel:[phone] [facility] Nursing Comments (chief complaint) .new pt (chief complaint) Encounter for screening, unspecifiedBody mass index (BMI) 29.0-29.9, adultEssential hypertensionSeizu re disorderMigraineM oderate major depressionChronic bilateral low back pain with bilateral sciaticaLumbago with sciatica, right sideOther chronic pain Jun-0 3 Zaira Levine. [address] [place], [address]. tel:[phone] As per patient privacy policy some of [...] illness Payers Payer name Insurance type Covered green [...] MD.MRI brain w/o contrast ordered Referral Ordered: MRI brain w/o contrast ordered Referral Ordered: 2D Echo Doppler, transthoracic, heart, complete, W/o Color Flow Appointment date/timeframe: 07/26/2022 ordered Referral Ordered: Bilateral Carotid Doppler (comp) Appointment date/timeframe: 07/19/2022 ordered History Of Present Illness Encounter Date [...] she recently moved to the area from [place] after a divorce. She has had migraines since she was a child. the headaches are worse when she is too hot. Her father was a soldier in [place] and was exposed to Agent [place]. she has always wondered if that has [...]
--- OUTSIDE RECORDS SUMMARY | 2024-06-11 12:10 | XMS_ITS | Encounter Summary ---
Author Organization [employer] Address [address] [place] [address] Care Team Providers Care Dictating Machine Transcriber Name Role Phone Stephany Casanova DO Primary Care Provider [phone] Reason for Visit * Reason Comments Care Coordination Outreach Encounter Details Date Type Department Care Team (Latest Contact Info) Description 05/26/2024 Patient Outreach [facility] P[facility]S [address] [place] [address] Stephany Casanova DO [address] [place], [place] [phone] Care Coordination (Outreach) Social History Tobacco Use [...] to offer services. CHW introducing herself from [facility] CM Department with CHW's name, department and direct contact [phone] requesting call back. Will re-attempt to contact within 5 days. and address not confirmed. documented in this encounter Plan of Treatment Not on file documented as of this encounter Visit Diagnoses Not on filedocumented in this encounter Additional Health Concerns Assessment Noted Time PHQ-9 Depression Total Score: 15 024 1:37 PM EST documented as of this encounter Care Teams Dictating Machine Transcriber Relationship Specialty Start Date End Date Stephany Casanova DO [address] [place] [address] PCP - General Family Medicine 09/23/23 documented as of this encounter
--- OUTSIDE RECORDS SUMMARY | 2024-06-11 12:10 | XMS_ITS | Encounter Summary ---
Author Organization [employer] Address [address] [place] [address] Care Team Providers Care Laydown Machine Operator Name Role Phone Stephany Casanova DO Primary Care Provider Reason for Visit * Reason Comments Care Coordination Outreach Encounter Details Date Type Department Care Team (Latest Contact Info) Description 06/02/2024 Patient Outreach [facility] MED [facility] PEDS [address] [place] [address] Stephany Casanova DO [address] [place], [place] [phone] Care Coordination (Outreach) Social History Tobacco Use [...] documented as of this encounter Care Teams Laydown Machine Operator Relationship Specialty Start Date End Date Stephany Casanova DO [address] [place] [phone] PCP - General Family Medicine 09/23/23 documented as of this encounter
--- OUTSIDE RECORDS SUMMARY | 2024-06-11 12:11 | XMS_ITS | Encounter Summary ---
Author Organization [employer] Address [address] [place] [address] Care Team Providers Care Switchman Name Role Phone Stephany Casanova Primary Care [...] Procedure Name Priority Date/Time Associated Diagnosis Comments BACTERIAL VAGINOSIS PANEL Routine 06/03/2024 1:30 PM EDT CHLAMYDIA/N. GONORRHOEAE RNA, TMA, UROGENITAL Routine 06/03/2024 1:30 PM EDT BASIC METABOLIC PANEL Routine 05/14/2024 2:44 PM EST URINALYSIS, COMPLETE Routine 05/14/2024 2:41 PM EST documented in this encounter Results * (ABNORMAL) Bacterial Vaginosis (06/03/2024 1:30 PM EDT) TRICHOMONAS VAGINALIS DETECTION BY PCR NOT DETECTED Not Detect [facility] BACTERIAL VAGINOSIS DETECTION BY PCR NEGATIVE Negative [facility] Comment:The BV organism targ ets of the Xpert Xpress MVP test can becommensal in women; Xpert Xpress MVP positive results forbacterial vaginosis should be considered in conjunction withother clinical and patient information to determine thedisease status. Organisms that are not detected by the XpertXpress MVP test have also been reported to be associatedwith BV and aerobic vaginitis.The Xpert Xpress MVP test performance has not been evaluatedin patients under the age of 14. ARLETH GROUP DETECTION BY PCR DETECTED(A) Not Detect [facility] Arleth glab krusei PCR DETECTED(A) Not Detect [facility] 06/03/2024 1:30 PM EDT 06/03/2024 5:02 PM EDT us Generic External Data Provider LAB MICROBIOLOGY - GENERAL ORDERABLES Final Result [facility] [address] [place] [address] [phone] * Chlamydia/N. Gonorrhoeae RNA, TMA, Urogenitial (06/03/2024 1:30 PM EDT) CT PCR NOT DETECTED Not Detect. [facility] Comment:A not detected test result does not exclude the possibilityof infection because test results can be affected byimproper specimen collection, concurrent antibiotic therapy,or the number of organisms in the specimen which may bebelow the sensitivity of the test. As with many diagnostictests, results from the Xpert CT/NG assay should beinterpreted in conjunction with other laboratory andclinical data available to the clinician.Xpert CT/NG performance has not been evaluated in patientsless than 14 years of age. The assay should not be used forthe evaluationof suspected sexual abuse or for other medico-legalindications. Additional testing is recommended in anycircumstance when false positive or false negative resultscould lead to adverse medical, social or psychologicalconsequences. NG PCR NOT DETECTED Not Detect. [facility] Comment:A not detected test result does not exclude the possibilityof infection because test results can be affected byimproper specimen collection, concurrent antibiotic therapy,or the number of organisms in the specimen which may bebelow the sensitivity of the test. As with many diagnostictests, results from the Xpert CT/NG assay should beinterpreted in conjunction with other laboratory andclinical data available to the clinician.Xpert CT/NG performance has not been evaluated in patientsless than 14 years of age. The assay should not be used forthe evaluationof suspected sexual abuse or for other medico-legalindications. Additional testing is recommended in anycircumstance when false positive or false negative resultscould lead to adverse medical, social or psychologicalconsequences. 06/03/2024 1:30 PM EDT 06/03/2024 5:02 PM EDT Narrative [facility] - 06/04/2024 5:43 AM EDT Vaginal Generic External Data Provider LAB MICROBIOLOGY - GENERAL ORDERABLES Final Result Performing Organization Address [facility] de Phone Number [facility] [address] [place] [phone] * (ABNORMAL) Basic Metabolic Panel (05/14/2024 2:44 PM EST) Sodium 146(H) 135 - 145 mmol/L [facility] Potassium 3.9 3.3 - 5.1 mmol/L [facility] Chloride 109(H) 96 - 108 mmol/L [facility] Carbon Dioxide 28 22 - 29 mmol/L [facility] Anion Gap 13 12 - 20 [facility] Urea Nitrogen (BUN) 18(H) 9 - 16 mg/dL [facility] Creatinine, Serum 0.92 0.5 - 1.4 mg/dL [facility] Estimated Glomerular Filt Rate >60 [facility] Comment:Chronic Kidney Disea se: Estimated GFR < 60 mL/min/1.86s2Ocqijz Kidney Disease: Estimated GFR < 15 mL/min/1.73m2 Glucose 81 60 - 115 mg/dL [facility] Calcium 9.4 8.4 - 10.2 mg/dL [facility] 05/14/2024 2:44 PM EST 05/14/2024 2:44 PM EST Generic External Data Provider LAB BLOOD ORDERAB LES Final Result Performing Organization Address [facility] Co de Phone Number [facility] [address] [place] [phone] * Urinalysis Complete (05/14/2024 2:41 PM EST) Color Urine Yellow [facility] Appearance Urine Clear [facility] PH 7.5 5.0 - 9.0 [facility] Glucose Urine UA Negative Negative mg/dL [facility] Urine Blood Negative Negative [facility] Specific [place] - Urine 1.020 1.005 - 1.025 [facility] Urine Protein Negative Neg-Trace mg/dL [facility] Urine Ketones Negative Negative mg/dL [facility] Nitrite Urine Negative Negative [facility] Leukocyte Esterase Urine Negative Negative [facility] RBC Urine 0-2 0 - 2 /HPF [facility] Urine WBC 0-5 0 - 5 /HPF [facility] Urine Squamous Epithelial Cell 0-2 0 - 2 /HPF [facility] Urine Bacteria None Seen None Seen [facility] Hyaline Casts, Urine 0-2 0 - 2 /LPF [facility] 05/14/2024 2:41 PM EST 05/14/2024 3:24 PM EST us Generic External Data Provider LAB URINE ORDERAB LES Final Result Performing Organization Address City/State/[facility] Co de Phone Number [facility] [address] [place] [address] [phone] documented in this encounter Visit Diagnoses Not on filedocumented in this encounter Additional Health Concerns Assessment Noted Time PHQ-9 Depression Total Score: 15 03/10/2 024 1:37 PM EST documented as of this encounter Care Teams Switchman Relationship Specialty Start Date End Date Stephany Casanova DO [address] [place] [address] PCP - General Family Medicine 09/23/23 documented as of this encounter
--- OUTSIDE RECORDS SUMMARY | 2024-06-11 12:11 | XMS_ITS | Patient Health Record ---
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) Active confirmed Problem [id number] Intervertebral d isc disorder with radiculopathy of lumbosacral region (M51.17) Active confirmed Problem 88822014 Spinal stenosis of lumbosacral region (M48.07) Active confirmed Plan Of Treatment No Information Insurance Providers Payer Name Payer Address Payer Phone Subscriber Number Group Number Insured Name Patient Relationship to Insured Coverage Start Date Coverage End Date Ravi Velarde W/C c/o [employer] [address] [place] [address] [id number] Rose Mao Self - patient is the insured Medical (General) History Medical History History ICD Code Chronic anxiety & depression hypertension GERD prediabetic Surgical History Surgery Date(Month/Year) Tonsillectomy childhood Appendectomy 1987 Emergency 1995 Venous Ablations 2011 & 2012
--- OUTSIDE RECORDS SUMMARY | 2024-06-11 12:11 | XMS_ITS | Clinical Summary ---
Author Organization [employer] Address [address] [place] [address] Care Team Providers Care Travelers' Aid Worker Name Role Phone Stephany Casanova DO [...] intervention , Patient to reach out to [facility] team as needed, and Patient to engage in OP therapy BMI 31.0-31.9,adult 08/22/2023 Mixed stress and urge urinary incontinence 08/21 Chronic migraine 08/22/2023 Hyperlipidemia 08/22/2023 Essential hypertension 01/03/2016 Encounters Date Type Department Care Team Description 06/05/2024 Population Health Risk Score [facility] (C3) Department [address] [place] [address] Provider, Population Health Generic 06/02/2024 Patient Outreach [facility] [address] [place] [address] Stephany Casanova DO Care Coordination (Outreach) 05/26/2024 Patient Outreach [facility] [address] [place] [address] Stephany Casanova DO Care Coordination (Outreach) 05/14/2024 Orders Only GENERIC EXTERNAL DATA DEPARTMENT Provider, Generic External Data 05/08/2024 Telephone [facility] [address] [place] [address] Stephany Casanova DO Results 04/03/2024 Telephone [facility] [address] [place] [address] Stephany Casanova DO Med Refill 04/03/2024 Refill [facility] [address] [place] [address] Stephany Casanova DO 04/02/2024 Refill [facility] [address] [place] [address] Gauri Lee MD 03/31/2024 Telephone [facility] [address] [place] [address] Stephany Casanova DO Referral 03/25/2024 Refill [facility] [address] [place] [address] Stephany Casanova DO from Last 3 Months Immunizations Name Administration [...] Relevant to Health Maintenance Results * (ABNORMAL) Bacterial Vaginosis (06/03/2024 1:30 PM EDT) TRICHOMONAS VAGINALIS DETECTION BY PCR NOT DETECTED Not Detect [facility] BACTERIAL VAGINOSIS DETECTION BY PCR NEGATIVE Negative [facility] Comment:The BV organism targ ets [...] GROUP DETECTION BY PCR DETECTED(A) Not Detect [facility] Arleth glab krusei PCR DETECTED(A) Not Detect [facility] 06/03/2024 1:30 PM EDT 06/03/2024 5:02 PM EDT us Generic External Data Provider LAB MICROBIOLOGY - GENERAL ORDERABLES Final Result [facility] [address] [place] [phone] * Chlamydia/N. Gonorrhoeae RNA, TMA, Urogenitial (06/03/2024 1:30 PM EDT) CT PCR NOT DETECTED Not Detect. [facility] Comment:A not detected test result [...] psychologicalconsequences. NG PCR NOT DETECTED Not Detect. [facility] Comment:A not detected test result [...] PM EDT 06/03/2024 5:02 PM EDT Narrative [facility] - 06/04/2024 5:43 AM EDT Vaginal us Generic External Data Provider LAB MICROBIOLOGY - GENERAL ORDERABLES Final Result Performing Organization Address City/State/[facility] Co de Phone Number [facility] [address] [place] [phone] * (ABNORMAL) Basic Metabolic Panel (05/14/2024 2:44 PM EST) Sodium 146(H) 135 - 145 mmol/L [facility] Potassium 3.9 3.3 - 5.1 mmol/L [facility] Chloride 109(H) 96 - 108 mmol/L [facility] Carbon Dioxide 28 22 - 29 mmol/L [facility] Anion Gap 13 12 - 20 [facility] Urea Nitrogen (BUN) 18(H) 9 - 16 mg/dL [facility] Creatinine, Serum 0.92 0.5 - 1.4 mg/dL [facility] Estimated Glomerular Filt Rate >60 [facility] Comment:Chronic Kidney Disea se: Estimated GFR < 60 mL/min/1.12d1Emcwpm Kidney Disease: Estimated GFR < 15 mL/min/1.73m2 Glucose 81 60 - 115 mg/dL [facility] Calcium 9.4 8.4 - 10.2 mg/dL [facility] 05/14/2024 2:44 PM EST 05/14/2024 2:44 PM EST Generic External Data Provider LAB BLOOD ORDERAB LES Final Result Performing Organization Address [facility] Co de Phone Number [facility] [address] [place] [phone] * Urinalysis Complete (05/14/2024 2:41 PM EST) Color Urine Yellow [facility] Appearance Urine Clear [facility] PH 7.5 5.0 - 9.0 [facility] Glucose Urine UA Negative Negative mg/dL [facility] Urine Blood Negative Negative [facility] Specific [place] - Urine 1.020 1.005 - 1.025 [facility] Urine Protein Negative Neg-Trace mg/dL [facility] Urine Ketones Negative Negative mg/dL [facility] Nitrite Urine Negative Negative [facility] Leukocyte Esterase Urine Negative Negative [facility] RBC Urine 0-2 0 - 2 /HPF [facility] Urine WBC 0-5 0 - 5 /HPF [facility] Urine Squamous Epithelial Cell 0-2 0 - 2 /HPF [facility] Urine Bacteria None Seen None Seen [facility] Hyaline Casts, Urine 0-2 0 - 2 /LPF [facility] 05/14/2024 2:41 PM EST 05/14/2024 3:24 PM EST us Generic External Data Provider LAB URINE ORDERAB LES Final Result Performing Organization Address [facility]/ZIP Co de Phone Number [facility] [address] [place] [phone] * MR Cervical Spine w/o Contrast (05/05/2024 6:13 PM EST) Anatomical Region Laterality Modality Spine, C-spine Magnetic Resonan ce 05/05/2024 6:13 PM EST Narrative 05/06/2024 7:23 AM EST ? [facility] ?[address] ?[place] [address] ? Magnetic Resonance Report ? Signed ? Patient: Herjooux,Rose ?MR#: [id number] ?? [id number] ? : 1975 ?Acct:[id number] ? Age/Sex: 49 / F ?ADM Date: 05/05/24 ? Loc: HO.MRI ? Attending Dr: Stephany Casanova DO ? Ordering Physician: Stephany Casanova DO ?? Date of Service: 05/05/24 ?? Procedure(s): MR cervical spine wo con ?? Accession Number(s): [id number] ? cc: Stephany Casanova DO ? EXAMINATION: ?? MR CERVICAL SPINE WITHOUT CONTRAST ? CLINICAL INFORMATION: ?? Cervical radiculopathy. 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 weakness and [...] DD/ 1813 ? TD/TT: 05/05/24 1835 ? Rental Sales Representative: ? Procedure Note Ju Toure - 05/06/[address] [address] Magnetic Resonance Report Signed Patient: Rose MaoMR#: [id number] : 1975Acct:[id number] Age/Sex: 49 / FADM Date: 05/05/24 Loc: HO.MRI Attending Dr: Stephany Casanova DO Ordering Physician: Stephany Casanova DO Date of Service: 05/05/24 Procedure(s): MR cervical spine wo con Accession Number(s): [id number] cc: Stephany Casanova DO EXAMINATION: MR CERVICAL SPINE WITHOUT CONTRAST CLINICAL INFORMATION: Cervical radiculopathy. EMG/and CAR RENTAL CLERK, right upper extremity numbness weakness and pain. [...] 05/06/24 0719 DD/ 1813 TD/TT: 05/05/24 1835 Rental Sales Representative: us Stephany Casanova DO IMG MRI PROCEDURES Final Res ult * BI Mammogram Screening Tomosynthesis Bilateral (11/26/2023 10:15 AM EDT) Anatomical Region Laterality Modality Breast Bilateral Mammography 11/26/2023 10:1 5 AM EDT Narrative 12/17/2023 1:33 PM EDT ? [facility] ? [address] ?[place] [address] ? Mammography Report ? Signed ? Patient: Rose Mao ?MR#: [id number] ?? [id number] ? : 1975 ?Acct:[id number] ? Age/Sex: 48 / F ?ADM Date: 11/26/23 ? Loc: HO.MAMMO ? Attending Dr: Stephany Casanova DO ? Ordering Physician: Jocelyne,Stephany A DO ?Results: 2B ?? enign Findings ? Date of Service: 11/26/23 ?Follow Up: 1 Year From Orig ?? inal Mammogram ? Procedure(s): MM tomosynthesis screening BI ?? Accession Number(s): [id number] ? cc: Stephany Casanova DO ? EXAMINATION: [...] ??Berna Corbett DO ??12/17/2023 01:30 PM EDT ? Dictated By: ?Berna Corbett DO ? Signed By: ?<Electronically signed by Berna Corbett, DO in OV> ? 12/17/23 1330 ? DD/ 1015 ? TD/TT: 11/26/23 1040 ? Rental Sales Representative: ? Procedure Note Ju Toure - 12/17/2023 [facility] [address] [place] [address] Dr. Pal, [place] [address] Mammography Report Signed Patient: Rose MaoMR#: [id number] : 1975Acct:[id number] Age/Sex: 48 / FADM Date: 11/26/23 Loc: HO.MAMMO Attending Dr: Stephany Casanova DO Ordering Physician: Stephany Casanovaults: 2B enign Findings Date of Service: 11/26/23Follow Up: 1 Year From Orig ina Mammogram Procedure(s): MM tomosynthesis screening BI Accession Number(s): [id number] cc: Stephany Casanova DO EXAMINATION: MM SCREENING [...] 12/17/23 1330 DD/ 1015 TD/TT: 11/26/23 1040 Rental Sales Representative: us Stephany Casanova DO IMG BI PROCEDURES Final Resu lt * Hepatitis C Antibody with Reflex to HCV, RNA, Quantitative, Real-Time PCR (09/23/2023 12:12 PM EDT) Hepatitis C Antibody Nonreactive Nonreactive [facility] Comment:Antibodies to HCV no t detected; does not exclude early acuteHCV infection. Blood Venous blood specimen / Unknown 09/23/2023 12:12 PM EDT 09/23/2023 1:13 PM EDT Stephany Casanova DO LAB BLOOD ORDERABLES Final R esult Performing Organization Address [facility] Co de Phone Number [facility] [address] [place] [phone] * HIV-1/2 Antigen and Antibodies, Fourth Generation, with Reflexes (09/23/2023 12:12 PM EDT) HIV AB/AG Nonreactive Nonreactive [facility] Comment:HIV-1 p24 Ag and/or HIV-1/HIV-2 Ab not detected.A test result that is nonreactive does not exclude thepossibility of exposure to or infection with HIV-1 and/orHIV-2. Nonreactive results in this assay for individualswith prior exposure to HIV-1 and/or HIV-2 may be due toantigen and antibody levels that are below the limit ofdetection of this assay.The [email or web address] HIV Ag/Ab Combo assay result andsupplemental assay results should be interpreted inconjunction with the patient's clinical presentation,history and other laboratory results. If the results areinconsistent with clinical evidence, additional testing issuggested to confirm the result. Blood Venous blood specimen / Unknown 09/23/2023 12:12 PM EDT 09/23/2023 1:13 PM EDT Stephany Casanova DO LAB BLOOD ORDERABLES Final R esult Performing Organization Address City/[facility]/ZIP Co de Phone Number [facility] [address] [place] [phone] * (ABNORMAL) Lipid Panel, Standard (09/23/2023 12:12 PM EDT) Triglycerides 191(H) <150 mg/dL [facility] Comment:Desirable Triglyceri de: less than 150 mg/dLBorderline High Triglyceride 150-199 mg/dLHigh Triglyceride: 200-499 mg/dLVery High Triglyceride: greater than or equal to 5OO mg/dL Cholesterol 249(H) <200 mg/dL [facility] Comment:Desirable Cholestero l: less than 200 mg/dLBorderline High Cholesterol: 200-239 mg/dLHigh Cholesterol: greater than 239 mg/dL LDL Cholesterol Calculated 139(H) <100 mg/dL [facility] Comment:Desirable LDL: less than 100 mg/dLNear Optimal/Above Optimal LDL: 110- 129 mg/dLBorderline High LDL: 130-159 mg/dLHigh LDL: 160-189 mg/dLVery High LDL: greater than or equal to 190 mg/dL HDL Cholesterol 72 >40 mg/dL [facility] Comment:Desirable HDL: great er than 40 mg/dL Note: This HDL assay may give artificially low results in patients with liver disease. Blood Venous blood specimen / Unknown 09/23/2023 12:12 PM EDT 09/23/2023 1:16 PM EDT Stephany Casanova DO LAB BLOOD ORDERABLES Final R esult [facility] [address] [place] [phone] from Last 3 Months or Most Recently Relevant to Health Maintenance Insurance [facility] C3 Care Teams Travelers' Aid Worker Relationship Specialty Start Date End Date Stephany Casanova DO [address] [place] [phone] PCP - General Family Medicine 09/23/23
--- OUTSIDE RECORDS SUMMARY | 2024-06-11 12:11 | XMS_ITS | Encounter Summary ---
Author Organization [facility] Address [address] 7t [place] [address] Care Team Providers Care Manager Of Financial Reporting Name Role Phone Stephany Casanova Primary Care Provider Encounter Details Date Type Department Care Team ([facility] st Contact Info) Description 06/05/2024 Population Health Risk Score [facility] (C3) Department [address] [phone] Provider, Population Health Generic Social History Tobacco Use Types Packs/Day Years [...] documented as of this encounter Care Teams Manager Of Financial Reporting Relationship Specialty Start Date End Date Stephany Casanova DO [address] [place] [phone] PCP - General Family Medicine 09/23/23 documented as of this encounter
--- OUTSIDE RECORDS SUMMARY | 2024-06-11 12:11 | XMS_ITS | Continuity of Care Document ---
Author Organization [facility] Address [address] [place] [address] Phone Care Team Providers Care It Admin Name Role Phone Trung Verdugo MD Unavailable Unavailable Procedures Procedure Date Void Encounter Number Advance Directives Directive Yes / No Effective Date File Name No Information Encounters Encounter Description Practice Location Reason(s) For Visit Diagnoses Date Provider Providers Copied on Encounter [facility], [address] [place], [place], [id number], [place] tel:[phone] [facility] - CTC No Information Kartik Nino. [address] [place] [address], [facility], [place]. tel:[phone] Family History Family Member Type Diagnosis Age [...]
--- OUTSIDE RECORDS SUMMARY | 2024-06-11 12:11 | XMS_ITS | Encounter Summary ---
Author Organization [employer] Address [address] [place] [address] Care Team Providers Care Adult Caregiver Name Role Phone Stephany Casanova Primary Care Provider [phone] Reason for Visit * Reason Comments Med Refill Encounter Details Date Type Department Care Team ([facility] st Contact Info) Description 04/02/2024 Refill [facility] [address] [place], [place] [phone] Gauri Lee MD [address] [place], [place] [phone] Social History Tobacco Use Types Packs/Day Years [...] documented as of this encounter Care Teams Adult Caregiver Relationship Specialty Start Date End Date Stephany Casanova DO [address] [place] [phone] PCP - General Family Medicine 09/23/23 documented as of this encounter
== END 2024-06-11 11:01 | disposition home or self-care (01) ==
LOC: HO.HKA 10:33
PROVIDERS: PCP Family Medicine; Visit Provider Internal Medicine Hypertension Specialist
DX: R35.1 Nocturia (principal); I10 Essential (primary) hypertension; R60.0 Localized edema
CPT/HCPCS: 99214

== ENCOUNTER → 2024-06-11 10:32 | Outpatient (BNVA) | payer MEDICAID, SELFPAY | PROVIDERS: PCP Family Medicine; Visit Provider Internal Medicine Hypertension Specialist | DX: I10 Essential (primary) hypertension (principal); E78.5 Hyperlipidemia, unspecified; R35.1 Nocturia; E66.9 Obesity, unspecified; R60.0 Localized edema; G43.909 Migraine, unspecified, not intractable, without status migrainosus; Z98.1 Arthrodesis status; Z68.31 Body mass index [BMI] 31.0-31.9, adult | CPT/HCPCS: 99212 ==

== ENCOUNTER 2024-06-11 11:07 | Outpatient (REF) | payer MEDICAID, SELFPAY ==
[2024-06-11 11:58] LABS: Anion Gap 9 (12-20); Blood Urea Nitrogen 19 mg/dL (9-16); Calcium 9.3 mg/dL (8.4-10.2); Carbon Dioxide 30 mmol/L (22-29); Chloride 106 mmol/L (96-108); Estimated Glomerular Filt Rate > 60; Glucose Random 92 mg/dL (60-115); Potassium 4.3 mmol/L (3.3-5.1); Sodium 141 mmol/L (135-145)
== END 2024-06-11 11:08 | disposition home or self-care (01) ==
LOC: HO.10HDL 11:07
PROVIDERS: Visit Provider Internal Medicine Hypertension Specialist
DX: I10 Essential (primary) hypertension (principal)
CPT/HCPCS: 36415; 80048

== ENCOUNTER 2024-07-17 07:42 | Outpatient (RCR) | payer MEDICAID, SELFPAY | END 2024-07-28 13:28 | disposition home or self-care (01) | LOC: HO.PT 07:42 | PROVIDERS: PCP Family Medicine; Visit Provider Family Medicine | DX: M79.601 Pain in right arm (principal); G89.29 Other chronic pain; G56.01 Carpal tunnel syndrome, right upper limb | CPT/HCPCS: 97035; 97110; 97140; 97162; 97530 ==

== ENCOUNTER 2025-01-11 12:41 | Outpatient (REF) | payer MEDICAID, SELFPAY ==
--- NOTE | ~2025-01-11 | MM_ITS ---
EXAMINATION: MM SCREENING DIGITAL BREAST TOMOSYNTHESIS, BILATERAL CLINICAL INFORMATION: Screening. Asymptomatic. COMPARISON: Mammography: Comparison is made with available priors TECHNIQUE: Digital breast mammography with tomosynthesis is performed in both the craniocaudal and mediolateral oblique views along with computer-aided detection (CAD). FINDINGS: There are scattered areas of fibroglandular density. There are no significant masses, abnormal calcifications, or other abnormalities. MM/MM tomosynthesis screening BI IMPRESSION: No mammographic evidence of malignancy. ASSESSMENT: BI-RADS Category 1: Negative RECOMMENDATION: Routine annual mammography screening. 1 year F/U This examination should not preclude the clinical evaluation of a suspicious palpable abnormality. This patient's information was entered into a reminder system with a target due date for their next mammogram. Electronically signed by: Berna Corbett DO 01/12/2025 06:02 PM SHAR[facility]
== END 2025-01-11 12:42 | disposition home or self-care (01) ==
LOC: HO.MAMMO 12:41
PROVIDERS: PCP Family Medicine; Visit Provider Family Medicine
DX: Z12.31 Encounter for screening mammogram for malignant neoplasm of breast (principal)
CPT/HCPCS: 77063; 77067

== ENCOUNTER → 2025-01-11 12:52 | Outpatient (BNV) | payer MEDICAID, SELFPAY | PROVIDERS: PCP Family Medicine; Visit Provider Internal Medicine | DX: Z12.31 Encounter for screening mammogram for malignant neoplasm of breast (principal) | CPT/HCPCS: 77063; 77067 ==